=== PATIENT | male | born 1950 | race Caucasian/White ===

== ENCOUNTER 2018-08-20 08:29 | Outpatient (CLI) | payer OTHER, SELFPAY ==
[2018-08-20 09:33] LABS: Abs Immature Grans 0.02 k/cumm (0.0-0.09); Absolute Basophil Count 0.04 k/cumm (0.0-0.2); Absolute Lymphocyte Count 1.36 k/cumm (1.2-3.4); Absolute Monocyte Count 0.66 k/cumm (0.11-0.7); Absolute Neutrophil Count 4.78 k/cumm (1.2-6.7); Basophils % 0.6; Eosinophils % 5.5; HCT 44.9 % (40.0-50.0); HGB 15.3 g/dL (13.5-17.5); Immature Grans % 0.3; Lymphocytes % 18.7; Mean Corp. HGB Concentration 34.1 g/dL (32.0-36.0); Mean Corpuscular Hemoglobin 30.2 pg (27.0-33.0); Mean Corpuscular Volume 88.6 fL (80-95); Mean Platelet Volume 10.5 fL (8.0-11.0); Monocytes % 9.1; Neutrophils % 65.8; Platelet Count 169 x1000/uL (130-400); RBC 5.07 m/cumm (4.50-6.00); White Blood Cell Count 7.26 k/cumm (4.4-10.8)
[2018-08-20 10:42] LABS: ALT 33 U/L (12-78); AST 17 U/L (15-37); Albumin 3.9 g/dL (3.4-5.0); Alkaline Phosphatase 61 U/L (46-116); Anion Gap 7.9 mmol/L (3-11); BUN 20 mg/dL (7-18); Bilirubin, Total 0.6 mg/dL (0.2-1.0); CO2 28.1 mmol/L (21.0-32.0); CREATININE 0.99 mg/dL (0.70-1.30); Chloride 104 mmol/L (98-107); Cholesterol 125 mg/dL (50-200); Glucose 93 mg/dL (70-100); HDL Cholesterol 41 mg/dL (40-60); LDL CHOLESTEROL 71 mg/dL (<100); Potassium 4.3 mmol/L (3.5-5.1); Sodium 140 mmol/L (136-145); Total Protein 6.6 g/dL (6.4-8.2); Triglyceride 59 mg/dL (30-150)
== END 2018-08-20 08:49 ==
PROVIDERS: PCP Nurse Practitioner; Visit Provider Nurse Practitioner
DX: E78.5 Hyperlipidemia, unspecified (principal); R97.20 Elevated prostate specific antigen [PSA]; E66.9 Obesity, unspecified
CPT/HCPCS: 36415; 80053; 80061; 83721; 85025

== ENCOUNTER 2018-12-15 07:00 | Outpatient (CLI) | payer OTHER, SELFPAY ==
[2018-12-15 10:34] LABS: ALT 34 U/L (12-78); AST 18 U/L (15-37); Alkaline Phosphatase 65 U/L (46-116); Anion Gap 6.8 mmol/L (3-11); BUN 22 mg/dL (7-18); Bilirubin, Total 0.6 mg/dL (0.2-1.0); CO2 31.2 mmol/L (21.0-32.0); CREATININE 1.01 mg/dL (0.70-1.30); Calcium 9.2 mg/dL (8.5-10.1); Chloride 103 mmol/L (98-107); Cholesterol 138 mg/dL (50-200); Glucose 101 mg/dL (70-100); HDL Cholesterol 51 mg/dL (40-60); LDL CHOLESTEROL 77 mg/dL (<100); Potassium 4.5 mmol/L (3.5-5.1); Sodium 141 mmol/L (136-145); Total Protein 6.9 g/dL (6.4-8.2); Triglyceride 49 mg/dL (30-150)
[2018-12-16 09:19] LABS: PSA, Screening 9.4 ng/ml (0-4.5)
== END 2018-12-15 07:20 ==
PROVIDERS: PCP Nurse Practitioner; Visit Provider Nurse Practitioner
DX: E78.5 Hyperlipidemia, unspecified (principal); I10 Essential (primary) hypertension; Z12.5 Encounter for screening for malignant neoplasm of prostate; R97.20 Elevated prostate specific antigen [PSA]
CPT/HCPCS: 36415; 80053; 80061; 83721; 84153

== ENCOUNTER 2019-08-24 02:05 | Outpatient (CLI) | payer OTHER, SELFPAY ==
[2019-08-24 09:43] LABS: ALT 33 U/L (16-63); AST 17 U/L (15-37); Albumin 4.1 g/dL (3.4-5.0); Alkaline Phosphatase 57 U/L (46-116); Anion Gap 9.7 mmol/L (3-11); BUN 18 mg/dL (7-18); Bilirubin, Total 0.7 mg/dL (0.2-1.0); CO2 30.3 mmol/L (21.0-32.0); CREATININE 1.04 mg/dL (0.70-1.30); Calculated LDL 80 mg/dL; Chloride 104 mmol/L (98-107); Cholesterol 162 mg/dL (<200); Glucose 104 mg/dL (74-106); HDL Cholesterol 54 mg/dL (40-60); Potassium 4.2 mmol/L (3.5-5.1); Sodium 144 mmol/L (136-145); Total Protein 6.8 g/dL (6.4-8.2); Triglyceride 144 mg/dL (<150)
== END 2019-08-24 02:25 ==
PROVIDERS: PCP Nurse Practitioner; Visit Provider Nurse Practitioner
DX: E78.5 Hyperlipidemia, unspecified (principal); I10 Essential (primary) hypertension
CPT/HCPCS: 36415; 80053; 80061

== ENCOUNTER 2020-01-26 03:17 | Outpatient (CLI) | payer OTHER, SELFPAY ==
[2020-01-27 10:51] LABS: PSA, Screening 10.6 ng/mL (0.0-4.5)
== END 2020-01-26 03:37 ==
PROVIDERS: PCP Nurse Practitioner; Visit Provider Urology
DX: Z12.5 Encounter for screening for malignant neoplasm of prostate (principal)
CPT/HCPCS: 36415; 84153

== ENCOUNTER 2020-08-29 02:25 | Outpatient (CLI) | payer OTHER, SELFPAY ==
[2020-08-29 14:10] LABS: ALT 31 U/L (16-63); AST 18 U/L (15-37); Alkaline Phosphatase 54 U/L (46-116); Anion Gap 5.2 mmol/L (3-11); BUN 20 mg/dL (7-18); Bilirubin, Total 0.6 mg/dL (0.2-1.0); CO2 30.8 mmol/L (21.0-32.0); Calcium 8.6 mg/dL (8.5-10.1); Calculated LDL 83 mg/dL (<100); Chloride 107 mmol/L (98-107); Cholesterol 143 mg/dL (<200); Glucose 101 mg/dL (74-106); HDL Cholesterol 45 mg/dL (40-60); Potassium 4.2 mmol/L (3.5-5.1); Sodium 143 mmol/L (136-145); Total Protein 6.8 g/dL (6.4-8.2); Triglyceride 75 mg/dL (<150)
== END 2020-08-29 02:45 ==
PROVIDERS: PCP Nurse Practitioner; Visit Provider Nurse Practitioner
DX: E78.5 Hyperlipidemia, unspecified (principal); I10 Essential (primary) hypertension
CPT/HCPCS: 36415; 80053; 80061

== ENCOUNTER 2020-12-19 14:19 | Outpatient (CLI) | payer OTHER, SELFPAY ==
[2020-12-20 00:53] LABS: COVID-19 RT-PCR UVMMC Result Negative (Negative)
== END 2020-12-19 14:20 | disposition home or self-care (01) ==
LOC: LBO 14:19
PROVIDERS: PCP Nurse Practitioner; Visit Provider Nurse Practitioner Family
DX: Z20.822 Contact with and (suspected) exposure to COVID-19 (principal)
CPT/HCPCS: U0003

== ENCOUNTER 2021-01-31 03:24 | Outpatient (CLI) | payer OTHER, SELFPAY ==
[2021-01-31 17:21] LABS: PSA, Diagnostic 8.6 ng/mL (0.0-4.5)
== END 2021-01-31 03:25 | disposition home or self-care (01) ==
LOC: LBO 03:24
PROVIDERS: PCP Nurse Practitioner; Visit Provider Urology
DX: R97.20 Elevated prostate specific antigen [PSA] (principal)
CPT/HCPCS: 84153

== ENCOUNTER 2021-09-05 02:54 | Outpatient (CLI) | payer MEDICARE, SELFPAY ==
[2021-09-05 08:04] LABS: Hemoglobin A1C 5.7 % (<5.7)
[2021-09-05 09:23] LABS: ALT 33 U/L (16-63); AST 16 U/L (15-37); Albumin 3.8 g/dL (3.4-5.0); Alkaline Phosphatase 59 U/L (46-116); Anion Gap 7.4 mmol/L (3-11); BUN 18 mg/dL (7-18); Bilirubin, Total 0.5 mg/dL (0.2-1.0); CO2 30.6 mmol/L (21.0-32.0); CREATININE 1.2 mg/dL (0.70-1.30); Calcium 8.7 mg/dL (8.5-10.1); Calculated LDL 80 mg/dL (<100); Chloride 105 mmol/L (98-107); Cholesterol 146 mg/dL (<200); Estimated GFR 59.86 (mL/min/1.73m2); Glucose 102 mg/dL (74-106); HDL Cholesterol 48 mg/dL (40-60); Potassium 4.3 mmol/L (3.5-5.1); Sodium 143 mmol/L (136-145); Total Protein 6.6 g/dL (6.4-8.2); Triglyceride 93 mg/dL (<150)
[2021-09-05 17:39] LABS: PSA, Screening 10.3 ng/mL (0.0-6.5)
== END 2021-09-05 02:55 | disposition home or self-care (01) ==
LOC: LBO 02:54
PROVIDERS: PCP Nurse Practitioner; Visit Provider Nurse Practitioner
DX: E78.5 Hyperlipidemia, unspecified (principal); I10 Essential (primary) hypertension; R73.01 Impaired fasting glucose; R97.20 Elevated prostate specific antigen [PSA]; Z12.5 Encounter for screening for malignant neoplasm of prostate
CPT/HCPCS: 36415; 80053; 80061; 84153; 83036

== ENCOUNTER 2022-01-24 02:33 | Outpatient (CLI) | payer MEDICARE, OTHER, SELFPAY ==
[2022-01-24 18:05] LABS: PSA, Diagnostic 15.7 ng/mL (<=6.5)
== END 2022-01-24 02:34 | disposition home or self-care (01) ==
LOC: LBO 02:35
PROVIDERS: PCP Nurse Practitioner; Visit Provider Nurse Practitioner Gerontology
DX: R97.20 Elevated prostate specific antigen [PSA] (principal)
CPT/HCPCS: 84153

== ENCOUNTER 2022-01-24 03:35 | Emergency (ER) | payer MEDICARE, OTHER, SELFPAY ==
[2022-01-24 03:40] VITALS: BP 160/92; PULSE 90; RESP 16; TEMP 36.3; O2SAT 98
--- NOTE | 2022-01-24 03:50 | ED.GENADUL_ITS ---
Discharge Plan Disposition Patient Disposition: HOME Condition: Good Discharge Details Clinical Impression: Acute urinary retention Primary Care Provider: Beth Morrison ED Provider: Saturnino Brody Home Meds and New Rx's Prescriptions: Continued magnesium 250 mg tablet 500 mg PO DAILY aspirin [Ecotrin Low Strength] 81 MG tablet,delayed release (DR/EC) 81 mg PO DAILY simvastatin 20 mg tablet 20 mg PO DAILY Qty: 90 3RF tamsulosin [Flomax] 0.4 mg capsule 0.4 mg PO DAILY Qty: 90 4RF Discharge Instructions Instructions: Urinary Retention in Men (ED), Parham Catheter Placement and Care (ED) Additional Instructions: Please keep the Parham catheter in until you are able to follow-up promptly with urology. Please empty the leg bag in the manner that was shown to. Please continue to take your Flomax at home. If you notice any worsening of your symptoms, or any new symptoms such as vomiting, diarrhea, fever, chills, shortness of breath, chest pain, numbness, weakness, or fainting , please return immediately to the emergency department for reevaluation. Please follow up with your primary care provider as soon as possible for reassessment and reevaluation. As always, it was a pleasure participating in your medical care today. Referrals: Severiano Sylvester MD [ [facility] STAFF PHYSICIAN] - Beth Morrison NP [Primary Care Provider] - Medical Decision Making This is a pleasant 71-year-old male with a past medical history of benign prostatic hyperplasia, hypertension, high cholesterol, and a previous episode of urinary retention requiring Parham catheter, who presents today for evaluation of urinary retention. Patient states that since 10:30 PM he has not been able to urinate. He denies any fever, chills, hematuria or dysuria. He denies any abdominal pain aside from the feeling of needing to urinate. No other complaints at this time. No other modifying factors. Physical exam demonstrates palpable bladder, no penile or testicular abnormality otherwise. Symptoms appear consistent with BPH causing urinary retention. I did offer a straight cath Parham versus an indwelling Parham, and patient has per her decided on an indwelling Parham. He will follow-up closely with his primary care provider and urology for removal. 4:06 AM Parham catheter was inserted by nursing team. Patient tolerated this well. 900 mL were removed and stopped on its own. Urine was yellow with no cloudiness or blood. Patient feels much better. Patient would like to go home. Patient will be discharged with leg bag and close follow-up with Dr. Sylvester. Discussed red flags which to return. Family was educated on emptying the Parham bag. I have extensively reviewed the treatment plan and discharge instructions with the patient. I have addressed all patient concerns at this time. The patient was made aware of what symptoms to monitor for that would warrant a return to the emergency department. Discussed the plan with the patient, they demonstrate verbal understanding and agreement with our assessment and plan at this time. The documentation in this chart was dictated using [employer] dictation software. Please excuse any dictation errors. HPI General Date/Time Provider Initiated Documentation: 01/24/22 03:38 . HPI Narrative: This is a pleasant 71-year-old male with a past medical history of benign prostatic hyperplasia, hypertension, high cholesterol, and a previous episode of urinary retention requiring Parham catheter, who presents today for evaluation of urinary retention. Patient states that since 10:30 PM he has not been able to urinate. He denies any fever, chills, hematuria or dysuria. He denies any abdominal pain aside from the feeling of needing to urinate. No other complaints at this time. No other modifying factors. Related Data Home Medications Medication Instructions Recorded Confirmed aspirin 81 mg tablet,delayed 81 mg PO DAILY 01/08/13 09/12/21 release (Ecotrin Low Strength) magnesium 250 mg tablet 500 mg PO DAILY 09/12/21 01/24/22 simvastatin 20 mg tablet 20 mg PO DAILY #90 tab-caps 11/20/21 01/24/22 tamsulosin 0.4 mg capsule (Flomax) 0.4 mg PO DAILY #90 tab-caps 11/20/21 01/24/22 Previous Rx's Medication Instructions Recorded simvastatin 20 mg tablet 20 mg PO DAILY #90 tab-caps 11/20/21 tamsulosin 0.4 mg capsule (Flomax) 0.4 mg PO DAILY #90 tab-caps 11/20/21 Allergies Allergy/AdvReac Type Severity Reaction Status Date / Time latex Allergy Unknown Skin Rash Verified 01/24/22 03:42 Penicillins Allergy Unknown THROAT Verified 01/24/22 03:42 SWELLING finasteride Allergy rash/itchin Verified 01/24/22 03:42 g ibuprofen Allergy Verified 01/24/22 03:42 General Stated Complaint: Urinary PREETI: 3 Review of Systems All systems reviewed & are unremarkable except as noted in HPI and below PFSH All Active Problems (Updated 01/24/22 @ 03:54 by Saturnino Brody DO) Acute urinary retention (Acute) Seborrheic keratoses (Acute) Skin tag (Acute) Encounter for routine history and physical examination (Acute) Elevated prostate specific antigen [PSA] (Acute 11/28/11) doubled 04-17, negative bx 2008 Elevated fasting blood sugar (Acute 08/17/15) Essential hypertension (Acute 04/27/13) Hyperlipidemia (Acute 11/28/11) PCEq 12%; LDL baseline 153 Incomplete bladder emptying (Acute 11/22/15) Obesity (Acute 05/07/13) Laceration of hand (Acute) Family History Father Cancer intestinal per pt Hypertension Mother , MVA No problems noted. Sister Cancer Social History Smoking/Tobacco Use Status: Never Smoking risk assessment performed?: Yes Alcohol Intake: current Alcohol Intake frequency: a few times a month Drug use: Never Substance use type: does not use Adopted: No Household members: significant other Housing: house Number of Children: 3 number of grandchildren: 3 Communication Needs: Corrective Lenses Do you need help understanding health information?: Never current occupation: retired Pets and animals: Yes Sexually active: Yes Do you think of yourself as: straight/heterosexual Current gender identity: male What is your relationship status?: How often do you talk on the phone with friends or family?: once per week Do you belong to any clubs or organized social groups?: no Panel score (0-1 are the most socially isolated patients): 1 What type of physical activity do you participate in: walking Duration: 30-45 minutes/day Frequency: 1-2 times per week Special ghazal needs: No Seatbelt use: sometimes Helmet use: No Drive intox or ride w/intox catering driver: No Working smoke detector in home: Yes Fire extinguisher in home: Yes Carbon monox detector in home: Yes Do you feel safe at home: Yes Exam Narrative Exam Narrative: 1.Const: Well-nourished, Well-developed, appearing stated age 2.Eyes: PERRL, no conjunctival injection, and symmetrical lids. 3.ENT: Atraumatic external nose and ears. Moist MM. Neck: Symmetric, trachea midline, No thyromegaly. 4.CVS: +S1/S2, No murmurs or gallops. Peripheral pulses 2+ and equal in all extremities. Brisk capillary refill in all extremities. 5.RESP: Unlabored respiratory effort. Clear to auscultation bilaterally. No wheezes rales or rhonchi 6.GI: Soft, Nontender/Nondistended, No hepatosplenomegaly. No guarding or rebound. Enlarged bladder palpable. Genital exam demonstrate no penile tenderness, swelling, erythema, or pain. No testicular mass or abnormality. 7.MSK: Normocephalic/Atraumatic, Extremities w/o deformity or ttp No cyanosis or clubbing, Normal movement of all extremities 8.Skin: Warm, Dry. No rashes or lesions. 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 Sensation grossly intact, no focal neurologic deficits. 10.Psych: (AAO) x3. Appropriate mood and affect Course Vital Signs Vital signs: Vital Signs Temperature 36.3 C L 01/24/22 03:40 Pulse 90 01/24/22 03:40 Respiratory Rate 16 01/24/22 03:40 Blood Pressure 160/92 H 01/24/22 03:40 Pulse Oximetry 98 01/24/22 03:40 Temperature 36.3 C L 01/24/22 03:40 Pulse 90 01/24/22 03:40 Respiratory Rate 16 01/24/22 03:40 Respiratory Effort Non-Labored 01/24/22 03:43 Blood Pressure 160/92 H 01/24/22 03:40 Pulse Oximetry 98 01/24/22 03:40 Pain Level 5 01/24/22 03:40
--- NOTE | 2022-01-24 04:07 | NUR.NOTE ---
Referral faxed to [facility] Urology for urinary retention. Patient sent home with indwelling catheter in place.Nursing Note:
== END 2022-01-24 04:23 | disposition home or self-care (01) ==
LOC: ER 04:19
PROVIDERS: Emergency Provider Student in an Organized Health Care Education/Training Program; PCP Nurse Practitioner
DX: R33.8 Other retention of urine (principal); R97.20 Elevated prostate specific antigen [PSA]
CPT/HCPCS: 51702; 99283; 84153

== ENCOUNTER → 2022-01-26 09:16 | Outpatient (BNVA) | payer MEDICARE, OTHER, SELFPAY | PROVIDERS: PCP Nurse Practitioner; Referring Provider Nurse Practitioner; Visit Provider Urology | DX: Z46.6 Encounter for fitting and adjustment of urinary device (principal); R33.8 Other retention of urine | CPT/HCPCS: 51702 ==

== ENCOUNTER 2022-01-29 16:08 | Outpatient (REF) | payer MEDICARE, OTHER, SELFPAY | END 2022-01-29 16:09 | disposition home or self-care (01) | LOC: LBN 16:08 | PROVIDERS: PCP Nurse Practitioner; Visit Provider Nurse Practitioner Gerontology | DX: R33.8 Other retention of urine (principal); R39.89 Other symptoms and signs involving the genitourinary system | CPT/HCPCS: 87077; 87086; 87186 ==

== ENCOUNTER 2022-01-29 18:35 | Emergency (ER) | payer MEDICARE, OTHER, SELFPAY ==
[2022-01-29 18:44] VITALS: BP 164/82; PULSE 73; RESP 16; TEMP 36.1; O2SAT 95
--- NOTE | 2022-01-29 18:58 | ED.GENADUL_ITS ---
Discharge Plan Disposition Patient Disposition: HOME Condition: Improving Discharge Details Clinical Impression: Acute on chronic urinary retention Primary Care Provider: Beth Morrison ED Provider: Cami Walker Home Meds and New Rx's Prescriptions: Continued tamsulosin [Flomax] 0.4 mg capsule 0.8 mg PO DAILY Qty: 90 4RF magnesium 250 mg tablet 500 mg PO DAILY aspirin [Ecotrin Low Strength] 81 MG tablet,delayed release (DR/EC) 81 mg PO DAILY simvastatin 20 mg tablet 4,020 mg PO DAILY tamsulosin 0.4 mg capsule 0.8 mg PO DAILY Label Comments: TAKE 1 CAPSULE BY MOUTH DAILY Discharge Instructions Instructions: Urinary Retention in Men (ED), Parham Catheter Placement and Care (ED) Additional Instructions: Call urology office tomorrow as discussed. Please return to the ER for any worsening abdominal pain, if the Parham stops draining or any concerns. Follow up with primary care provider in 3-5 days. Return to ED sooner if any worsening or concerns. Increase oral fluids. Referrals: May Blake DNP [NURSE PRACTITIONER] - 1 day Beth Morrison, PROPOSAL CONSULTANT [Primary Care Provider] - Discharge Data Discharge Date/Time-TO BE ENTERED AT DEPARTURE: 01/29/22 19:54 Medical Decision Making <Cami Walker - Last Filed: 01/29/22 22:10> 71-year-old female presents to the ER with a chief complaint of inability to urinate. Patient was seen here approximately 5 days ago for urinary retention had a Parham catheter placed at that time with a leg bag. He was seen by urology this morning had Parham removed around 8 AM. He reports that he was initially able to urinate however became more difficult around 4 PM this afternoon. He did have a bladder scan which showed approximately 200 cc postvoid residual after the Parham was removed. He reports he is able to urinate with just a little tiny bit at a time. He is complaining of abdominal fullness. He has a past medical history of hypertension, hyperlipidemia elevated PSA. Bladder scan performed by staff therapist which showed approximately 500 cc of urine. Parham inserted by staff therapist, at this time 800cc output. 1939: Patient reevaluation, he appears much more comfortable. He will call urology office tomorrow to discuss the reinsertion of the Parham catheter. Patient be discharged home. This text was generated using [employer] dictation system, please disregard any oddities of phrase or misspellings. <Itz Blue MD - Last Filed: 02/02/22 06:50> Date: 01/29/22 Time: 18:04 Note: Patient seen, examined, and discussed with ANA Walker. I agree with treatment plan as discussed/documented. HPI <Cami Walker - Last Filed: 01/29/22 22:10> General Mode of arrival: ambulatory . Date/Time Provider Initiated Documentation: 01/29/22 18:36 . Limitations to Documentation: no limitations . Information obtained by: patient, family (), RN notes reviewed and old records reviewed . HPI Narrative: 71-year-old female presents to the ER with a chief complaint of inability to urinate. Patient was seen here approximately 5 days ago for urinary retention had a Parham catheter placed at that time with a leg bag. He was seen by urology this morning had Parham removed around 8 AM. He reports that he was initially able to urinate however became more difficult around 4 PM this afternoon. He did have a bladder scan which showed approximately 200 cc postvoid residual after the Parham was removed. He reports he is able to urinate with just a little tiny bit at a time. He is complaining of abdominal fullness. He has a past medical history of hypertension, hyperlipidemia elevated PSA. Related Data Home Medications Medication Instructions Recorded Confirmed aspirin 81 mg tablet,delayed 81 mg PO DAILY 01/08/13 01/29/22 release (Ecotrin Low Strength) magnesium 250 mg tablet 500 mg PO DAILY 09/12/21 01/29/22 tamsulosin 0.4 mg capsule (Flomax) 0.8 mg PO DAILY #90 tab-caps 01/26/22 01/29/22 simvastatin 20 mg tablet 4,020 mg PO DAILY 01/29/22 01/29/22 tamsulosin 0.4 mg capsule 0.8 mg PO DAILY 01/29/22 01/29/22 Previous Rx's Medication Instructions Recorded tamsulosin 0.4 mg capsule (Flomax) 0.8 mg PO DAILY #90 tab-caps 01/26/22 Allergies Allergy/AdvReac Type Severity Reaction Status Date / Time latex Allergy Unknown Skin Rash Verified 01/29/22 18:49 Penicillins Allergy Unknown THROAT Verified 01/29/22 18:49 SWELLING finasteride Allergy rash/itchin Verified 01/29/22 18:49 g ibuprofen Allergy Verified 01/29/22 18:49 General Stated Complaint: Urinary PREETI: 3 Review of Systems <Cami Walker - Last Filed: 01/29/22 22:10> All systems reviewed & are unremarkable except as noted in HPI and below Genitourinary Genitourinary: Reports as per HPI, Reports oliguria and Reports difficulty urinating PFSH <Cami Walker - Last Filed: 01/29/22 22:10> All Active Problems (Updated 01/29/22 @ 19:42 by Cami Walker) Acute on chronic urinary retention (Acute) Acute urinary retention (Acute) Seborrheic keratoses (Acute) Skin tag (Acute) Encounter for routine history and physical examination (Acute) Elevated prostate specific antigen [PSA] (Acute 11/28/11) doubled -, negative bx 2008 Elevated fasting blood sugar (Acute 08/17/15) Essential hypertension (Acute 04/27/13) Hyperlipidemia (Acute 11/28/11) PCEq 12%; LDL baseline 153 Incomplete bladder emptying (Acute 11/22/15) Obesity (Acute 05/07/13) Laceration of hand (Acute) Family History Father Cancer intestinal per pt Hypertension Mother , MVA No problems noted. Sister Cancer Social History Smoking/Tobacco Use Status: Never Smoking risk assessment performed?: Yes Alcohol Intake: current Alcohol Intake frequency: a few times a month Drug use: Never Substance use type: does not use Adopted: No Household members: significant other Housing: house Number of Children: 3 number of grandchildren: 3 Communication Needs: Corrective Lenses Do you need help understanding health information?: Never current occupation: retired Pets and animals: Yes Sexually active: Yes Do you think of yourself as: straight/heterosexual Current gender identity: male What is your relationship status?: How often do you talk on the phone with friends or family?: once per week Do you belong to any clubs or organized social groups?: no Panel score (0-1 are the most socially isolated patients): 1 What type of physical activity do you participate in: walking Duration: 30-45 minutes/day Frequency: 1-2 times per week Special ghazal needs: No Seatbelt use: sometimes Helmet use: No Drive intox or ride w/intox tank driver: No Working smoke detector in home: Yes Fire extinguisher in home: Yes Carbon monox detector in home: Yes Do you feel safe at home: Yes Exam <Cami Walker [facility] Filed: 01/29/22 22:10> Narrative Exam Narrative: Constitutional: Alert and oriented x3. Appears stated age. Normal body habitus. Head: Normocephalic, no trauma. Chest: RRR, Normal S1, S2, distal pulses intact. Resp: Lungs clear to auscultation bilaterally, no wheezes, rales, or rhonchi. Abdomen: Suprapubic tenderness with palpation and fullness. Musculoskeletal: Normal gait, 5/5 strength to all four extremities. Skin: No suspicious rashes or lesions. Capillary refill less than 2 sec. Course <Cami Walker [facility] Filed: 01/29/22 22:10> Vital Signs Vital signs: Vital Signs Temperature 36.1 C L 01/29/22 18:44 Pulse 73 01/29/22 18:44 Respiratory Rate 16 01/29/22 18:44 Blood Pressure 164/82 H 01/29/22 18:44 Pulse Oximetry 95 01/29/22 18:44 Temperature 36.1 C L 01/29/22 18:44 Temperature Source Temporal Artery Scan 01/29/22 18:44 Pulse 73 01/29/22 18:44 Respiratory Rate 16 01/29/22 18:44 Respiratory Effort 01/29/22 18:44 Blood Pressure 164/82 H 01/29/22 18:44 Blood Pressure Position Sitting 01/29/22 18:44 Pulse Oximetry 95 01/29/22 18:44 Pain Level 10 01/29/22 18:44
[2022-01-29] MEDS: Lidocaine 2% Jelly 11 ML SYR UR (19:54)
== END 2022-01-29 19:54 | disposition home or self-care (01) ==
PROVIDERS: Emergency Provider Registered Nurse Emergency; PCP Nurse Practitioner
DX: R33.9 Retention of urine, unspecified (principal)
CPT/HCPCS: 99283; 51702; 51798; 81003; 99214

== ENCOUNTER → 2022-02-07 14:18 | Outpatient (BNVA) | payer MEDICARE, OTHER, SELFPAY | PROVIDERS: PCP Nurse Practitioner; Referring Provider Nurse Practitioner; Visit Provider Nurse Practitioner Gerontology | DX: R33.8 Other retention of urine (principal); R97.20 Elevated prostate specific antigen [PSA] | CPT/HCPCS: 99214 ==

== ENCOUNTER → 2022-02-27 00:15 | Outpatient (CLI) | payer MEDICARE, OTHER, SELFPAY ==
--- NOTE | 2022-02-27 07:15 | DI.US_ITS ---
Exam(s) US PROSTATE BIOPSY EXAM: US PROSTATE BIOPSY CLINICAL HISTORY: elevated psa, ACUTE ON CHRONIC URINARY RETENTION, R97.20, R33.9 TECHNIQUE: Transrectal ultrasound. COMPARISON: No exams were available for comparison FINDINGS: Ultrasound was provided for Dr. Sylvester during prostate biopsy. Prostate volume 123 cc. Please see pr ocedure note for details. DATA REPOSITORY:
--- NOTE | 2022-02-27 10:00 | PROST_PTH ---
PATIENT: Naren Lechuga LOC: [facility] U#:[id number] AGE/SX: 75/M ROOM: RE02/27/[address]: May Blake DNP : 1950 BED: DIS: SPEC #: [id number] RECD: 02/27/22 12:47 STATUS: REBECCA LANDON #: [id number] ADI: 02/27/22 10:[address]: May Blake DEPT: Surgical Specimen RECD BY: Angeles Conde ENTERED: 02/27/22 12:50 SP TYPE: PROST OTHR DR: Beth Morrison APRN Tissues: 1 - PROSTATE NEEDLE BIOPSY 2 - PROSTATE NEEDLE BIOPSY 3 - PROSTATE NEEDLE BIOPSY 4 - PROSTATE NEEDLE BIOPSY 5 - PROSTATE NEEDLE BIOPSY 6 - PROSTATE NEEDLE BIOPSY 7 - PROSTATE NEEDLE BIOPSY 8 - PROSTATE NEEDLE BIOPSY 9 - PROSTATE NEEDLE BIOPSY 10 - PROSTATE NEEDLE BIOPSY 11 - PROSTATE NEEDLE BIOPSY 12 - PROSTATE NEEDLE BIOPSY Procedures: GROSS AND MICRO LEVEL 4 IMMUNOPEROXIDASE STAIN Comments: [id number]
--- NOTE | 2022-02-27 11:32 | ROE_ITS ---
Date of service: 02/27/22 Time of Service: 09:00 Operative Note Operative Note PRE-OP DIAGNOSIS: Elevated PSA POST-OP DIAGNOSIS: same PROCEDURE: Transrectal ultrasound guided biopsy of prostate SURGEON: Severiano Sylvester ANESTHESIA TYPE: Local By Surgeon Refer to Anesthesia Record ESTIMATED BLOOD LOSS: 20 PATHOLOGY: other (Laterally directed prostate biopsies) COMPLICATIONS: None Patient was transported to: no change Patient's condition: stable Implants: none Indications: This is a 71-year-old gentleman who has a past history of an elevated PSA. He has had a prostate biopsy in the past that showed no prostate malignancy. He currently has urinary retention and an elevated PSA of 15.7 ng/mL. He presents for repeat prostate biopsy Findings: Prostate volume 123 cc Procedure Description: The patient is given a mechanical and antibiotic bowel prep. He was brought to the radiology suite on 02/27/2022. He was placed in the left lateral position. Transrectal imaging of the prostate was then performed using a variable m egahertz transducer. The prostate was imaged in transverse and longitudinal planes. Prostate was markedly enlarged with a volume of 123 cc. The transition zone was enlarged and a bit asymmetric with the left side being larger than the right. The peripheral zone was compressed by the enlarged transition zone. No specific hypoechoic areas were identified. A periprostatic nerve block was then performed with 1% lidocaine without epinephrine. A total of 12 laterally directed biopsies were then taken. Each biopsy was labeled separately and sent to the lab for permanent section. The patient tolerated this procedure well with no complications.
== END ==
PROVIDERS: PCP Nurse Practitioner; Visit Provider Nurse Practitioner Gerontology
DX: R33.9 Retention of urine, unspecified (principal); R97.20 Elevated prostate specific antigen [PSA]; N42.89 Other specified disorders of prostate
CPT/HCPCS: 55700; 76942; 88305; 99212; 88361

== ENCOUNTER → 2022-03-13 10:50 | Outpatient (BNVA) | payer MEDICARE, OTHER, SELFPAY | PROVIDERS: PCP Nurse Practitioner; Referring Provider Nurse Practitioner; Visit Provider Urology | DX: R33.8 Other retention of urine (principal); R97.20 Elevated prostate specific antigen [PSA] | CPT/HCPCS: 99215 ==

== ENCOUNTER 2022-03-16 15:37 | Outpatient (REF) | payer MEDICARE, OTHER, SELFPAY ==
[2022-03-16 14:16] LABS: Source Nasal/Nares
[2022-03-16 17:17] LABS: COVID-19 PCR Negative (Negative)
== END 2022-03-16 15:38 | disposition home or self-care (01) ==
LOC: LBN 15:37
PROVIDERS: PCP Nurse Practitioner; Visit Provider Urology
DX: Z20.822 Contact with and (suspected) exposure to COVID-19 (principal); Z01.818 Encounter for other preprocedural examination
CPT/HCPCS: 87635

== ENCOUNTER 2022-03-19 07:24 | Inpatient (IN) | payer MEDICARE, OTHER, SELFPAY ==
[2022-03-19] VITALS (13 sets, daily range): BP systolic 106–138; BP diastolic 57–82; PULSE 60–76; RESP 12–27; TEMP 35.5–37.5; O2SAT 90–97; BMI 32.1
[2022-03-19] MEDS: Lactated Ringers 1,000 ML 80 ML IV ×3 (08:23→23:09)
--- NOTE | 2022-03-19 09:22 | W.PM.HP.N ---
Date of service: 03/19/22 Time of Service: : Assessment and Plan Assessment and plan (1) Urinary retention: Status: Acute Assessment and plan: Given the size of the prostate, we will move forward with an open simple retropubic prostatectomy History of Present Illness History of Present Illness Chief Complaint: Urinary retention Narrative: This is a 72 year old man who has a history of an elevated PSA. He has had two negative prostate biopsies (most recently @ 1 month ago). At the time of the prostate biopsy, his prostate volume was measured @ 125 cc by ultrasound. He developed urinary retention requiring a catheter. He has failed alpha lee therapy. He is unable to tolerate 5 alpha reductase inhibitors. After discussing multiple surgical approaches, he presents for an open simple prostatectomy. Review of Systems Constitutional Comments: No fevers or chills Decreased vision - due for cataract surgery. No dysphasia No diabetes or thyroid dysfunction No shortness of breath, cough or hemoptysis No chest pain or palpitations No nausea, vomiting, hepatitis, ulcers, jaundice No seizures, strokes or peripheral neuropathy No bleeding disorders or anemia No gout PFSH All Active Problems (Updated 03/19/22 @ 09:36 by Severiano Sylvester MD) Urinary retention (Acute) Seborrheic keratoses (Acute) Skin tag (Acute) Encounter for routine history and physical examination (Acute) Elevated prostate specific antigen [PSA] (Acute 11/28/11) doubled -, negative bx 2008 Elevated fasting blood sugar (Acute 08/17/15) Essential hypertension (Acute 04/27/13) Hyperlipidemia (Acute 11/28/11) PCEq 12%; LDL baseline 153 Incomplete bladder emptying (Acute 11/22/15) Obesity (Acute 05/07/13) Laceration of hand (Acute) Family History Father Cancer intestinal per pt Hypertension Mother , MVA No problems noted. Sister Cancer Social History Smoking/Tobacco Use Status: Never Smoking risk assessment performed?: Yes Alcohol Intake: former Drug use: Never Substance use type: does not use Adopted: No Household members: significant other Housing: house Number of Children: 3 number of grandchildren: 3 Communication Needs: Corrective Lenses Do you need help understanding health information?: Never current occupation: retired Pets and animals: Yes Sexually active: Yes Do you think of yourself as: straight/heterosexual Current gender identity: male What is your relationship status?: How often do you talk on the phone with friends or family?: once per week Do you belong to any clubs or organized social groups?: no Panel score (0-1 are the most socially isolated patients): 1 What type of physical activity do you participate in: walking Duration: 30-45 minutes/day Frequency: 1-2 times per week Special ghazal needs: No Seatbelt use: sometimes Helmet use: No Drive intox or ride w/intox yard truck driver: No Working smoke detector in home: Yes Fire extinguisher in home: Yes Carbon monox detector in home: Yes Do you feel safe at home: Yes Do you feel safe in your relationship?: Yes Meds Allergies and Home Medications Allergies Allergy/AdvReac Type Severity Reaction Status Date / Time latex Allergy Unknown eyes run Verified 03/19/22 07:33 Penicillins Allergy Unknown THROAT Verified 03/19/22 07:33 SWELLING finasteride Allergy rash/itchin Verified 03/19/22 07:33 g ibuprofen Allergy Verified 03/19/22 07:33 Home Medications Medication Instructions Recorded Confirmed Type magnesium 250 mg tablet 500 mg PO DAILY 09/12/21 03/19/22 History simvastatin 20 mg tablet 20 mg PO DAILY 02/07/22 03/19/22 History tamsulosin 0.4 mg capsule (Flomax) 0.8 mg PO DAILY #90 tab-caps 02/07/22 03/19/22 Rx Exam Const General: cooperative Nutritional Appearance: overweight Neck Neck: supple Resp Effort & Inspection: normal respiratory effort Auscultation: clear to auscultation bilaterally Cardio Rate: regular rate Rhythm: regular rhythm GI Palpation: soft and no masses Penis: other (caro in place) Neuro General: patient alert, patient awake and patient oriented x3 Results Labs Labs: Laboratory Results - last 24 hr 03/19/22 07:50 Patient ABO/Rh A Positive Antibody Screen NEGATIVE Last Vital Signs Temp 36.5 C 03/19/22 07:50 Pulse 65 03/19/22 07:50 Resp 16 03/19/22 07:50 BP 138/78 03/19/22 07:50 Pulse Ox 97 03/19/22 07:50
--- NOTE | 2022-03-19 09:24 | W.ANESPRE ---
General Info Date of Service Date Performed: 03/19/22 Height: 5 ft 10 in Weight: 101.5 kg Body Mass Index (BMI): 32.1 Surgical Procedure: Operation Date: 03/19/22 09:55 Proposed Procedure Side Surgeon p Simple Retropubic Prostatectomy Severiano Sylvester MD Meds Allergies and Home Medications Allergies Allergy/AdvReac Type Severity Reaction Status Date / Time latex Allergy Unknown eyes run Verified 03/19/22 07:33 Penicillins Allergy Unknown THROAT Verified 03/19/22 07:33 SWELLING finasteride Allergy rash/itchin Verified 03/19/22 07:33 g ibuprofen Allergy Verified 03/19/22 07:33 Home Medication Medication Instructions Recorded magnesium 250 mg tablet 500 mg PO DAILY 09/12/21 simvastatin 20 mg tablet 20 mg PO DAILY 02/07/22 tamsulosin 0.4 mg capsule (Flomax) 0.8 mg PO DAILY #90 tab-caps 02/07/22 Current Visit Medications: Current Medications Generic Name Dose Route Start Last Admin Trade Name Freq PRN Reason Stop Dose Admin Ringer's Solution 1,000 mls @ 80 mls/hr 03/19/22 06:00 03/19/22 08:23 IV 04/15/22 23:59 80 mls/hr INFUSION AMAURY Administration Gentamicin Sulfate 160 mg/ 104 mls @ 208 mls/hr 03/19/22 06:00 Sodium Chloride IVPB 03/19/22 18:00 PREOP AMAURY IV Miscellaneous Supplies 1 each 03/19/22 06:00 Iv Access IV 04/15/22 23:59 DIRECTED AMAURY Sodium Chloride 0 ml 03/19/22 06:00 Normal Saline Flush 10 Ml Syr IV 04/15/22 23:59 PRN PRN Sodium Chloride 0 ml 03/19/22 06:00 Normal Saline 10 Ml Vial IJ 04/15/22 23:59 DIRECTED PRN Sterile Water 0 ml 03/19/22 06:00 Water,Injection,Sterile 10 Ml Vial IJ 04/15/22 23:59 DIRECTED PRN PFSH Active Problems Active Problems: Problem Status Onset Code Seborrheic keratoses L82.1 Skin tag L91.8 Encounter for routine history and physical examination Z00.00 Elevated prostate specific antigen [PSA] 11/28/11 R97.20 Elevated fasting blood sugar 08/17/15 R73.01 Essential hypertension 04/27/13 I10 Hyperlipidemia 11/28/11 E78.5 Incomplete bladder emptying 11/22/15 R33.9 Obesity 05/07/13 E66.9 Laceration of hand S61.419A Tobacco Smoking/Tobacco Use Status: Never Passive smoking exposure: No Alcohol Alcohol Intake: former Substance Use Substance use: Never Substance use type: does not use Vital Signs and Lab Results Vital Signs Most Recent Vital Signs in EMR: Most Recent Vital Signs Temp Pulse Resp BP Pulse Ox 36.5 C 65 16 138/78 97 03/19/22 07:50 03/19/22 07:50 03/19/22 07:50 03/19/22 07:50 03/19/22 07:50 Lab Results Blood Type / Crossmatch: Patient ABO/Rh A Positive 03/19/22 Antibody Screen NEGATIVE 03/19/22 Complete Blood Count: No Data to Display Complete Metabolic Panel: No Data to Display Liver Function Panel: No Data to Display Coagulation Panel: No Data to Display Cardiac Panel: No Data to Display Arterial Blood Gas: No Data to Display Venous Blood Gas: No Data to Display Pancreas Panel: No Data to Display Thyroid Panel: No Data to Display Infectious Disease: Coronavirus (COVID-19)(PCR) Negative (Negative) 03/16/22 08:25 Coronavirus 2019 Source Nasal/Nares 03/16/22 08:25 Blood Cultures: No Data to Display Toxicology Panel: No Data to Display Anesthesia Assessment and Plan Anesthesia History Personal History: No History of Anesthesia Complications Family History: No Family History of Anesthesia Complications Exercise Tolerance Exercise Tolerance: Metabolic Equivalents>4 Pertinent Negatives Pertinent Negatives: No Symptoms of GERD, No Major Cardiovascular Symptoms or Complaints, No Major Pulmonary Symptoms or Complaints and No History of CVA/TIA Cardiac & Pulmonary Exam Cardiac Exam: Normal S1/S2 Heart Sounds Pulmonary Exam: Clear Bilateral Breath Sounds Implantable Cardiac Device Does patient have a Pacemaker or an ICD?: No Airway Exam Known Difficult Airway: No Mallampati Class: 2 Mouth Opening: Normal (> 3cm) Thyromental Distance: Greater than 3 cm Neck Range of Motion: Full ROM Neck Circumference: Normal Teeth Condition: Normal Dentition ASA Classification ASA Score: ASA 2 Emergency Case?: No NPO Status NPO Status: NPO Clears >2 hours, Solids >8 hours Anesthesia Plan Resuscitation Status: Full Code Anesthesia Technique: General Anesthesia Airway Planned: Endotracheal Tube Pain Management: Surgeon and patient request nerve block (Bilateral rescue TAPs if requested. ) Monitors Used: Standard Monitors
[2022-03-19] MEDS: GENTAMICIN 160 MG in Normal Saline 100 ML 208 MG IVPB (09:45)
--- NOTE | 2022-03-19 11:35 | PROST_PTH ---
PATIENT: Naren Lechuga LOC: U#:[id number] AGE/SX: 72/M ROOM: RE03/19/[address]: Severiano Sylvester MD : 1950 BED: A DIS: 03/20/2022 SPEC #: [id number] RECD: 03/19/22 13:12 STATUS: REBECCA REQ #: [id number] ADI: 03/19/22 11:[address]: Severiano Sylvester DEPT: Surgical Specimen RECD BY: Connie Coburn ENTERED: 03/19/22 13:14 SP TYPE: PROST OTHR DR: Beth Morrison APRN Tissues: 1 - PROSTATE RESECTION Procedures: IMMUNOPEROXIDASE STAIN GROSS AND MICRO LEVEL 5 Comments: [id number]
[2022-03-19] MEDS: Bupivacaine 0.5% Pres-Free W/EPI 10 ML VIAL (11:40)
--- NOTE | 2022-03-19 11:57 | ROE_ITS ---
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 He developed urinary retention requiring a Parham catheter. He is unable to tolerate 5 alpha reductase inhibitors. He failed medical management with alpha blockers. His most recent transrectal ultrasound indicates that the prostate is over 100 g in size. Because of the size of the prostate, he is more interested in a simple open prostatectomy. Findings: Diffusely enlarged prostate Procedure Description: The patient was brought to the operating room on 03/19/2022. He was given preoperative IV antibiotics. After successful induction of general anesthesia, he was placed in the supine position. His indwelling catheter was removed. His genitalia and lower abdomen were prepped and draped sterilely. A 16 [place] catheter was passed through the urethra into the bladder. The catheter balloon was inflated with 10 cc of sterile water. The catheter was hooked to gravity drainage. A Pfannenstiel incision was made and extended down through the subcutaneous fat until the rectus fascia was identified. The fascia was opened along the direction of the incision. The fascia was then freed from the underlying rectus muscle using sharp and blunt dissection. The bellies of the rectus muscle were retracted laterally and this allowed us to come down upon the bladder and prostate in the retroperitoneum. The periprosthetic fat on the anterior aspect of the prostate was dissected free using sharp and blunt dissection. We were then able to visualize the exterior surface of the prostatic capsule. Stay sutures of 3-0 Vicryl were placed through the prostatic capsule. The capsule was opened longitudinally between the stay sutures. The capsule was opened using the Bovie. A plane was then developed between the prostatic capsule and the actual adenoma. We used blunt dissection to dissect and shell out the adenoma. We finger fractured the urethra out toward the apex of the gland. The Parham catheter balloon was deflated and the catheter was removed. This allowed us to dissect the prostate off of the bladder neck. The entire prostate adenoma was then removed and sent to pathology for permanent section. A lap pad was placed within the prostatic fossa to help with hemostasis. A 24 [place] hematuria catheter was passed through the urethra and positioned with the tip in the bladder. The catheter balloon was inflated with 50 cc of sterile water. The prostatic capsule was then reapproximated using [id number] 0 Vicryl sutures. The Parham catheter was hand irrigated until all clots were removed. Continuous bladder irrigation with saline was then begun and the catheter was hooked to gravity drainage. The rectus fascia was then closed using a running #1 PDS looped suture. The skin was closed with a 4-0 Vicryl subcuticular suture. Quarter percent Marcaine with epinephrine was injected at the incision site. The patient tolerated this procedure well with no complications.
--- NOTE | 2022-03-19 13:17 | W.ANESPOSTOP ---
Postoperative Evaluation Date, Time and Location Date Performed: 03/19/22 Time Performed: 13:17 Patient Location: PACU Vital Signs Most Recent Imported Vital Signs: Most Recent Vital Signs Temp Pulse Resp BP Pulse Ox 36.7 C 69 12 121/62 93 03/19/22 12:40 03/19/22 12:50 03/19/22 12:50 03/19/22 12:50 03/19/22 12:50 Pain Score Most Recent Pain Score: Most Recent Pain Score Pain Level 0 03/19/22 12:50 Assessment Mental Status: Awake (Alert & Oriented to Patient Baseline) Airway and Respiratory Function: Patent airway with normal (patient baseline) respiratory exam Cardiovascular Function: Hemodynamically Stable Hydration Status: Adequately Hydrated Nausea & Vomiting: No Nausea or Vomiting Pain: Pain is tolerable per patient Peripheral Nerve Block: Patient did not receive a nerve block
[2022-03-19] MEDS: Docusate Sodium 100 MG CAP PO (19:55)
[2022-03-20 06:27] LABS: HCT 33.4 % (40.0-50.0); HGB 11.2 g/dL (13.5-17.5); MCH 29.5 pg (27.0-33.0); MCHC 33.5 % (32.0-36.0); MCV 88 fL (80-95); MPV 9.3 fL (8.0-11.0); Platelet Count 196 10^3/uL (130-400); RDW 13.3 % (11.8-14.1); RDW-SD 42.6 fL
[2022-03-20 06:38] LABS: Anion Gap 10.5 mmol/L (3-11); BUN 20 mg/dL (7-18); CO2 27.5 mmol/L (21.0-32.0); CREATININE 0.9 mg/dL (0.70-1.30); Calcium 8.2 mg/dL (8.5-10.1); Chloride 104 mmol/L (98-107); Glucose 120 mg/dL (74-106); Sodium 142 mmol/L (136-145)
[2022-03-20 07:21] VITALS: BP 117/70; PULSE 73; RESP 18; TEMP 37.6; O2SAT 92
--- NOTE | 2022-03-20 07:52 | PGE_ITS ---
Date of Service Date of service: 03/20/22 Time of Service: 07:52 Assessment and Plan Assessment and plan (1) Urinary retention: Status: Acute Assessment and plan: He is progressing as we would expect after his simple retropubic prostatectomy. Discontinue his IV fluids, but continue with continuous bladder irrigation today. Once the CBI can be discontinued, we can then consider discharging to home with his catheter in place. (2) Elevated prostate specific antigen [PSA]: Status: Acute Subjective Subjective Interval history since last seen: He has a few bladder spasms overnight, but did not go into clot retention. He has been able to tolerate p.o. nutrition with no nausea or vomiting. He does have some incisional discomfort. Exam Narrative Exam Narrative: He does not appear septic or toxic His vital signs are documented elsewhere His surgical incision is clean with some surrounding ecchymosis but no erythema. His abdomen is soft and not tympanitic. There is no peritoneal signs His bladder irrigation is light pink He is awake and alert His renal function and hemoglobin are both stable and appropriate post operatively. Objective Last Vital Signs Temp 37.6 C H 03/20/22 07:21 Pulse 73 03/20/22 07:21 Resp 18 03/20/22 07:21 BP 117/70 03/20/22 07:21 Pulse Ox 92 03/20/22 07:21 Laboratory Results - last 24 hr 03/19/22 03/20/22 03/20/22 07:50 06:14 06:14 WBC 11.00 H RBC 3.80 L Hgb 11.2 L Hct 33.4 L MCV 88 MCH 29.5 MCHC 33.5 RDW 13.3 Plt Count 196 MPV 9.3 Sodium 142 Potassium 4.0 Chloride 104 Carbon Dioxide 27.5 Anion Gap 10.5 BUN 20 H Creatinine 0.9 Estimated GFR/1.73 m2 >= 60.00 Glucose 120 H Calcium 8.2 L Patient ABO/Rh A Positive Antibody Screen NEGATIVE
[2022-03-20] MEDS: Docusate Sodium 100 MG CAP PO (09:03)
[2022-03-20] MEDS: Simvastatin 20 MG TAB PO (09:04)
[2022-03-20] MEDS: Acetaminophen 325 MG TAB 650 MG PO (09:04)
--- NOTE | 2022-03-20 11:34 | INITIAL_ITS ---
- If Service Date Differs Date of service: 03/20/22 Time of Service: 11:34 Care Management Initial Assess REASON FOR HOSPITALIZATION:: Urinary Retention PAST MEDICAL HISTORY/PAST SURGICAL HISTORY:: All Active Problems (Updated 03/19/22 @ 09:36 by Severiano Sylvester MD). Urinary retention (Acute). Seborrheic keratoses (Acute). Skin tag (Acute). Encounter for routine history and physical examination (Acute). Elevated prostate specific antigen [PSA] (Acute 11/28/11). doubled 04-17, negative bx 2008. Elevated fasting blood sugar (Acute 08/17/15). Essential hypertension (Acute 04/27/13). Hyperlipidemia (Acute 11/28/11). PCEq 12%; LDL baseline 153. Incomplete bladder emptying (Acute 11/22/15). Obesity (Acute 05/07/13). Laceration of hand (Acute) PREVIOUS FUNCTIONAL STATUS/SOCIAL/FAMILY SUPPORTS:: Naren lives in [place], [place] with his Stephanie. He does not have any children of his own but his has 3. They had 3 grandchildren but one is . 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 He receives no community services and is independent at baseline. CURRENT FUNCTIONAL STATUS:: Naren was sitting up in a chair when CM met with him. He was pleasant and open to conversation.Naren stated that he is feeling pretty well. His urine is clearing and he has been told that he may discharge tomorrow. Naren spoke about his 19 year old grandson who about a year ago and how difficult it has been for the entire family. Naren also spoke about his upcoming eye surgery in April. He has carolina waiting for quite some time and shared that he hopes nothing interferes with his ability to have the surgery. ADVANCE DIRECTIVES:: On file at [facility]. [facility]- Summer Grey (sister) Has patient been provided with info about the portal/API?: Yes Did the patient sign up for the portal?: Yes (previously) INSURANCE COVERAGE / FINANCIAL ISSUES:: medicare. [employer] CURRENT HOME/COMMUNITY SERVICES/EQUIPMENT:: none PRIMARY CARE PHYSICIAN:: Beth Morrison POTENTIAL DISCHARGE NEEDS:: Follow up with Urology, PCP and Plan of care PATIENT/FAMILY EDUCATION NEEDS:: Review discharge instructions, limitations, follow up plan, activity, discuss Ask Me Three TRANSPORTATION:: via private vehicle with family PLAN:: Naren will likely be discharged home with no new services. He will follow up with Urology, his PCP and plan of care and transport with family. CM will support Naren and his discharge planning concerns.
--- NOTE | 2022-03-20 12:15 | PHA.REVIEW ---
Pharmacy Admission Review - Admission Clinical Review (Last Reviewed 01/29/22 @ 19:02 by Cami Walker NP) Urinary retention (Acute) Elevated prostate specific antigen [PSA] (Acute 11/28/11) latex Allergy (Unknown, Verified 03/19/22 07:33) eyes run Penicillins Allergy (Unknown, Verified 03/19/22 07:33) THROAT SWELLING finasteride Allergy (Verified 03/19/22 07:33) rash/itching ibuprofen Allergy (Verified 03/19/22 07:33) Resuscitation Status Full Code Height 5 ft 10 in Weight 101.5 kg - Renal Dosing Renal Dosing: BUN 20 mg/dL (7-18) H 03/20/22 06:14 Creatinine 0.9 mg/dL (0.70-1.30) 03/20/22 06:14 Medications needing adjustments: Reviewed (Crcl ~89.9 mL/min using adjusted body weight; current meds okay) - Anticoagulation Anticoagulation: Hgb 11.2 g/dL (13.5-17.5) L 03/20/22 06:14 Hct 33.4 % (40.0-50.0) L 03/20/22 06:14 Plt Count 196 10^3/uL (130-400) 03/20/22 06:14 Creatinine 0.9 mg/dL (0.70-1.30) 03/20/22 06:14 DVT Prophylaxis: Reviewed (pt has SCDs ordered) Therapeutic Anticoagulation: N/A - Opiate Usage Evaluate Pain Scale/Pains Meds: Reviewed Scheduled Bowel Reg ordered if on Opiates?: Yes - Relevant Labs Sodium 142 mmol/L (136-145) 03/20/22 06:14 Potassium 4.0 mmol/L (3.5-5.1) 03/20/22 06:14 Chloride 104 mmol/L (98-107) 03/20/22 06:14 Electrolytes, C-Reactive P, ESR: Reviewed - DM Control DM Control: Glucose 120 mg/dL (74-106) H 03/20/22 06:14 Insulin Dosing: N/A (BG mildly elevated. No DM noted in pt's medical history, previous A1c was 5.7 on 09/05/21) - Heart Failure/WV EF%, KIMBERLYN's, B-Blockers, Diuretics: N/A - BP Control BP Control: Blood Pressure 117/70 If elevated: Reviewed (BP has been low to normal most of admission so far.) - Qtc Review If Elevated: N/A - IV to PO Switch IV Medications: Reviewed - Home Meds Home Med List reviewed: Reviewed (magnesium) - Current meds Current Medication Order Review: Reviewed - Comments Comments/Follow Ups: Watch VS, labs and for med changes.
--- NOTE | 2022-03-20 12:46 | DSE_ITS ---
DS: Diagnosis Discharge Diagnosis (1) Urinary retention: Status: Acute (2) Elevated prostate specific antigen [PSA]: Status: Acute Discharge Plan Disposition Patient Disposition: HOME Condition: Stable Discharge Details Reason For Visit: Urinary Retention Admit Date/Time: 03/19/22 07:24 Admit Provider: Severiano Sylvester Attending Provider: Severiano Sylvester Primary Care Provider: Beth Morrison Hospital Course Hospital Course: The patient was admitted and taken to the operating 03/19/2022 where he underwent a simple retropubic prostatectomy. Following the procedure, he was admitted to the medical surgical unit for continuous bladder irrigation. His IV fluid was discontinued when he was able to tolerate oral nutrition and medications. Once the bladder irrigation became clear, the irrigation was discontinued and the patient was deemed appropriate for discharge. Home Meds and New Rx's Prescriptions: New tramadol 50 mg tablet 50 mg PO Q6H PRN (Reason: pain) Qty: 20 0RF Rx Instructions: may take along with NSAIDS and tylenol No Action magnesium 250 mg tablet 500 mg PO DAILY Label Comments: pt reports he last took this 6 months ago tamsulosin [Flomax] 0.4 mg capsule 0.8 mg PO DAILY Qty: 90 4RF simvastatin 20 mg tablet 20 mg PO DAILY Discharge Instructions Additional Instructions: Catheter plug to irrigation port of catheter Drainage port of catheter to leg bag Followup @ 1 week for catheter removal Followup appt @ 2 weeks for pathology results and symptom check OK to shower Activity:: no lifting over 10 pounds Equipment/Supplies:: caro to leg bag Diet:: As Tolerated DS: Summary Time Spent with Patient providing and/or coordinating discharge services: Less than 30 minutes Status at Discharge Functional status at discharge: independent ambulation Overall status at discharge: patient is progressing back to baseline Mental Status: mental status grossly normal Speech and Movement: speech and movement normal Mood: congruent mood Affect: normal affect Exam Narrative Exam Narrative: At the time of this charge, he appears comfortable. His vital signs are documented elsewhere The surgical incision is healing nicely with no surrounding erythema. His Caro catheter is patent his urine is transparent He is awake and alert Psych Mental Status: mental status grossly normal Speech and Movement: speech and movement normal Mood: congruent mood Affect: normal affect DS: Data Vitals/I&O Vitals and I&O: Vital Signs Temperature 37.6 C H 03/20/22 07:21 Temperature Source Tympanic 07/12/22 07:21 Pulse 73 03/20/22 07:21 Pulse Rhythm Regular 03/20/22 08:59 Respiratory Rate 18 03/20/22 07:21 Respiratory Effort 03/20/22 08:59 Respiratory Depth Normal 03/20/22 08:59 Respiratory Pattern Normal 03/20/22 08:59 Blood Pressure 117/70 03/20/22 07:21 Pulse Oximetry 92 03/20/22 07:21 Respiratory End-tidal CO2 25 03/19/22 12:40 Oxygen Delivery Method Room Air 03/20/22 07:21 Oxygen Flow Rate 0 03/20/22 07:21 Pain Level 2 03/20/22 10:04 Comment pT stated that the 11/16 is more of a discomfort. 03/19/22 13:10 Intake & Output 03/19/22 03/20/22 03/20/22 23:59 11:59 23:59 Intake Total 1304.667 / 2108.667 976.667 / 976.667 Output Total 8400 / 8400 08677 / 09245 Balance -7095.333 / -6291.333 -97668.333 / -72750.333 Intake: IV 1064.667 / 1868.667 726.667 / 726.667 Oral 240 / 240 250 / 250 Output: Urine 8400 / 8400 37041 / 76536 Other: Urine Color [place] Urine Appearance Clear Clear Urine Odor Normal Comment no flow noted 1 small clot , hand irrigated twice, flow recommenced Emesis Description None Voiding Methods Indwelling Catheter Data Completed and Pending Labs on day of discharge: Labs from last 24 hours 03/20/22 03/20/22 06:14 06:14 WBC 11.00 H RBC 3.80 L Hgb 11.2 L Hct 33.4 L MCV 88 MCH 29.5 MCHC 33.5 RDW 13.3 Plt Count 196 MPV 9.3 Sodium 142 Potassium 4.0 Chloride 104 Carbon Dioxide 27.5 Anion Gap 10.5 BUN 20 H Creatinine 0.9 Estimated GFR/1.73 m2 >= 60.00 Glucose 120 H Calcium 8.2 L PFSH All Active Problems (Updated 03/19/22 @ 09:36 by Severiano Sylvester MD) Urinary retention (Acute) Seborrheic keratoses (Acute) Skin tag (Acute) Encounter for routine history and physical examination (Acute) Elevated prostate specific antigen [PSA] (Acute 11/28/11) doubled -, negative bx 2008 Elevated fasting blood sugar (Acute 08/17/15) Essential hypertension (Acute 04/27/13) Hyperlipidemia (Acute 11/28/11) PCEq 12%; LDL baseline 153 Incomplete bladder emptying (Acute 11/22/15) Obesity (Acute 05/07/13) Laceration of hand (Acute) Family History Father Cancer intestinal per pt Hypertension Mother , MVA No problems noted. Sister Cancer Social History Smoking/Tobacco Use Status: Never Smoking risk assessment performed?: Yes Alcohol Intake: former Drug use: Never Substance use type: does not use Adopted: No Household members: significant other Housing: house Number of Children: 3 number of grandchildren: 3 Communication Needs: Corrective Lenses Do you need help understanding health information?: Never current occupation: retired Pets and animals: Yes Sexually active: Yes Do you think of yourself as: straight/heterosexual Current gender identity: male What is your relationship status?: How often do you talk on the phone with friends or family?: once per week Do you belong to any clubs or organized social groups?: no Panel score (0-1 are the most socially isolated patients): 1 What type of physical activity do you participate in: walking Duration: 30-45 minutes/day Frequency: 1-2 times per week Special ghazal needs: No Seatbelt use: sometimes Helmet use: No Drive intox or ride w/intox street flusher driver: No Working smoke detector in home: Yes Fire extinguisher in home: Yes Carbon monox detector in home: Yes Do you feel safe at home: Yes Do you feel safe in your relationship?: Yes
[2022-03-20 15:23] VITALS: BP 109/55; PULSE 89; RESP 18; TEMP 36.7; O2SAT 96
== END 2022-03-20 16:14 | disposition home or self-care (01) | DRG 708 ==
LOC: PDS 10:33 → MS 13:10
PROVIDERS: Admitting Provider Urology; PCP Nurse Practitioner; Visit Provider Urology
PROC: 0VT00ZZ Resection of Prostate, Open Approach (ICD-10-PCS; CPT 55831; principal; 2022-03-19 09:45)
DX: N40.1 Benign prostatic hyperplasia with lower urinary tract symptoms (principal); R33.8 Other retention of urine; I10 Essential (primary) hypertension; E78.5 Hyperlipidemia, unspecified; E66.9 Obesity, unspecified; R97.20 Elevated prostate specific antigen [PSA]; L82.1 Other seborrheic keratosis; Z68.32 Body mass index [BMI] 32.0-32.9, adult
CPT/HCPCS: 55831; 36415; 80048; 85027; 86850; 86900; 86901; 88307; 88361; J1100; J1580; J1885; J2405; J2704

== ENCOUNTER → 2022-03-27 13:54 | Outpatient (BNVA) | payer MEDICARE, OTHER, SELFPAY | PROVIDERS: PCP Nurse Practitioner; Referring Provider Nurse Practitioner; Visit Provider Nurse Practitioner Gerontology | DX: R33.8 Other retention of urine (principal) ==

== ENCOUNTER → 2022-04-02 11:44 | Outpatient (BNVA) | payer MEDICARE, OTHER, SELFPAY | PROVIDERS: PCP Nurse Practitioner; Referring Provider Nurse Practitioner; Visit Provider Urology | DX: T14.8XXA Other injury of unspecified body region, initial encounter (principal); L08.9 Local infection of the skin and subcutaneous tissue, unspecified ==

== ENCOUNTER → 2022-04-03 07:52 | Outpatient (BNVA) | payer MEDICARE, OTHER, SELFPAY | PROVIDERS: PCP Nurse Practitioner; Referring Provider Nurse Practitioner; Visit Provider Nurse Practitioner Gerontology | DX: Z48.816 Encounter for surgical aftercare following surgery on the genitourinary system (principal); L08.9 Local infection of the skin and subcutaneous tissue, unspecified; T14.8XXA Other injury of unspecified body region, initial encounter ==

== ENCOUNTER → 2022-04-04 07:58 | Outpatient (BNVA) | payer MEDICARE, OTHER, SELFPAY | PROVIDERS: PCP Nurse Practitioner; Referring Provider Nurse Practitioner; Visit Provider Nurse Practitioner Gerontology | DX: Z48.816 Encounter for surgical aftercare following surgery on the genitourinary system (principal); L08.9 Local infection of the skin and subcutaneous tissue, unspecified; T14.8XXA Other injury of unspecified body region, initial encounter ==

== ENCOUNTER 2022-04-05 11:20 | Outpatient (REF) | payer MEDICARE, OTHER, SELFPAY | END 2022-04-05 11:21 | disposition home or self-care (01) | LOC: LBN 11:20 | PROVIDERS: PCP Nurse Practitioner; Visit Provider Nurse Practitioner Gerontology | DX: T81.49XA Infection following a procedure, other surgical site, initial encounter; Z90.79 Acquired absence of other genital organ(s) | CPT/HCPCS: 87070; 87205 ==

== ENCOUNTER → 2022-04-06 14:49 | Outpatient (BNVA) | payer MEDICARE, OTHER, SELFPAY | PROVIDERS: PCP Nurse Practitioner; Referring Provider Nurse Practitioner; Visit Provider Urology | DX: L08.9 Local infection of the skin and subcutaneous tissue, unspecified (principal); T81.40XA Infection following a procedure, unspecified, initial encounter ==

== ENCOUNTER → 2022-04-09 14:16 | Outpatient (BNVA) | payer MEDICARE, OTHER, SELFPAY | PROVIDERS: PCP Nurse Practitioner; Referring Provider Nurse Practitioner; Visit Provider Urology | DX: Z90.79 Acquired absence of other genital organ(s) (principal); T14.8XXA Other injury of unspecified body region, initial encounter; L08.9 Local infection of the skin and subcutaneous tissue, unspecified ==

== ENCOUNTER 2022-04-16 07:23 | Day surgery (SDC) | payer MEDICARE, OTHER, SELFPAY ==
[2022-04-16] MEDS: Tropicam./Phenyleph. (1/2.5%) 5 ML BTL OD ×3 (07:49→08:01)
--- NOTE | 2022-04-16 08:11 | W.ANESPRE ---
General Info Date of Service Date Performed: 04/16/22 Height: 5 ft 10 in Weight: 97.8 kg Body Mass Index (BMI): 30.9 Surgical Procedure: Operation Date: 04/16/22 09:40 Proposed Procedure Side Surgeon p Cataract Extraction with IOL Implant Right Polo Phelps MD Meds Allergies and Home Medications Allergies Allergy/AdvReac Type Severity Reaction Status Date / Time latex Allergy Unknown eyes run Verified 04/16/22 07:42 Penicillins Allergy Unknown THROAT Verified 04/16/22 07:42 SWELLING finasteride Allergy rash/itchin Verified 04/16/22 07:42 g ibuprofen Allergy Verified 04/16/22 07:42 Home Medication Medication Instructions Recorded magnesium 250 mg tablet 500 mg PO DAILY 09/12/21 simvastatin 20 mg tablet 20 mg PO DAILY 02/07/22 tamsulosin 0.4 mg capsule 1 cap PO DAILY 04/16/22 Current Visit Medications: Current Medications Generic Name Dose Route Start Last Admin Trade Name Freq PRN Reason Stop Dose Admin Acetaminophen 1,000 mg 04/16/22 06:00 Acetaminophen 500 Mg Tab PO Q4H PRN PRN Miscellaneous Medication 0 ml 04/16/22 06:00 Prednisolone 1%, Moxifloxacin 0.5%, Nepafenac 0.1% 5ml Btl OD DIRECTED [facility] Miscellaneous Medication 0 ml 04/16/22 06:00 04/16/22 08:01 Tropicam./Phenyleph. (1/2.5%) 5 Ml Btl OD 1 drp DIRECTED AMAURY Administration Tetracaine HCl 0 ml 04/16/22 06:00 Tetracaine 0.5% 4 Ml Btl OD DIRECTED [facility] PFSH Active Problems Active Problems: Problem Status Onset Code Laceration of hand S61.419A Obesity 05/07/13 E66.9 Incomplete bladder emptying 11/22/15 R33.9 Hyperlipidemia 11/28/11 E78.5 Essential hypertension 04/27/13 I10 Elevated fasting blood sugar 08/17/15 R73.01 Elevated prostate specific antigen [PSA] 11/28/11 R97.20 Encounter for routine history and physical examination Z00.00 Skin tag L91.8 Seborrheic keratoses L82.1 Urinary retention R33.9 Surgical History Surgical History Hx of prostatectomy Tobacco Smoking/Tobacco Use Status: Never Passive smoking exposure: No Alcohol Alcohol Intake: former Substance Use Substance use: Never Substance use type: does not use Vital Signs and Lab Results Lab Results Blood Type / Crossmatch: Patient ABO/Rh A Positive 03/19/22 Antibody Screen NEGATIVE 03/19/22 Complete Blood Count: White Blood Count 11.00 10^3/uL (4.4-10.8) H 03/20/22 06:14 Red Blood Count 3.80 10^6/uL (4.36-5.78) L 03/20/22 06:14 Hemoglobin 11.2 g/dL (13.5-17.5) L 03/20/22 06:14 Hematocrit 33.4 % (40.0-50.0) L 03/20/22 06:14 Platelet Count 196 10^3/uL (130-400) 03/20/22 06:14 Complete Metabolic Panel: Sodium Level 142 mmol/L (136-145) 03/20/22 06:14 Potassium Level 4.0 mmol/L (3.5-5.1) 03/20/22 06:14 Chloride Level 104 mmol/L (98-107) 03/20/22 06:14 Carbon Dioxide Level 27.5 mmol/L (21.0-32.0) 03/20/22 06:14 Blood Urea Nitrogen 20 mg/dL (7-18) H 03/20/22 06:14 Creatinine 0.9 mg/dL (0.70-1.30) 03/20/22 06:14 Estimated GFR/1.73 m2 >= 60.00 (mL/min/1.73m2) 03/20/22 06:14 Calcium Level 8.2 mg/dL (8.5-10.1) L 03/20/22 06:14 Glucose Level 120 mg/dL (74-106) H 03/20/22 06:14 Liver Function Panel: No Data to Display Coagulation Panel: No Data to Display Cardiac Panel: No Data to Display Arterial Blood Gas: No Data to Display Venous Blood Gas: No Data to Display Pancreas Panel: No Data to Display Thyroid Panel: No Data to Display Infectious Disease: No Data to Display Blood Cultures: No Data to Display Toxicology Panel: No Data to Display Anesthesia Assessment and Plan Anesthesia History Personal History: No History of Anesthesia Complications Family History: No Family History of Anesthesia Complications Exercise Tolerance Exercise Tolerance: Metabolic Equivalents>4 Pertinent Negatives Pertinent Negatives: No Symptoms of GERD Cardiac & Pulmonary Exam Cardiac Exam: Normal S1/S2 Heart Sounds Pulmonary Exam: Clear Bilateral Breath Sounds Implantable Cardiac Device Does patient have a Pacemaker or an ICD?: No Airway Exam Known Difficult Airway: No Mallampati Class: 2 Mouth Opening: Normal (> 3cm) Thyromental Distance: Greater than 3 cm Neck Range of Motion: Full ROM Neck Circumference: Normal Teeth Condition: Normal Dentition ASA Classification ASA Score: ASA 2 Emergency Case?: No NPO Status NPO Status: NPO Clears >2 hours, Solids >8 hours Anesthesia Plan Resuscitation Status: Full Code Anesthesia Technique: MAC Anesthesia Airway Planned: Natural Airway Monitors Used: Standard Monitors
[2022-04-16 08:12] VITALS: BMI 30.9
[2022-04-16] MEDS: Tetracaine 0.5% 4 ML BTL OD (08:47)
[2022-04-16] MEDS: Lidocaine 2% Jelly 6 ML SYR (08:48)
[2022-04-16] MEDS: Povidone-Iodine Ophth 30 ML BTL (08:49)
[2022-04-16] MEDS: Balanced Salt Soln.-PLUS 500 ML BAG (08:54)
[2022-04-16] MEDS: Trypan Blue 0.06% 0.5 ML SYR (08:55)
[2022-04-16] MEDS: Duovisc Viscoelastic System EACH 1 EACH (09:13)
[2022-04-16 09:30] VITALS: BP 124/79; PULSE 70; RESP 16; TEMP 36.7; O2SAT 94
--- NOTE | 2022-04-16 09:32 | W.PM.DSUDISC ---
Discharge Plan Disposition Patient Disposition: HOME Condition: Good Discharge Details Attending Provider: Polo Phelps Primary Care Provider: Beth Morrison Home Meds and New Rx's Prescriptions: No Action magnesium 250 mg tablet 500 mg PO DAILY Label Comments: pt reports he last took this 6 months ago simvastatin 20 mg tablet 20 mg PO DAILY tamsulosin 0.4 mg capsule 1 cap PO DAILY Label Comments: TAKE 2 CAPSULES BY MOUTH DAILY Discharge Instructions Stand Alone Forms: Post-op Topical Cataract, Franco Fowler (DSU) Discharge Orders Discharge Orders: Discharge Order (Routine); Ordered 04/16/22 Ordered By: Polo Phelps DS: Diagnosis Discharge Diagnosis (1) Posterior subcapsular age-related cataract, right eye: Status: Resolved (2) Nuclear sclerotic cataract of right eye: Status: Resolved (3) Cortical cataract of right eye: Status: Resolved
--- NOTE | 2022-04-16 09:33 | W.PM.OP ---
Date of service: 04/16/22 Time of Service: 09:33 Operative Note Operative Note DATE OF PROCEDURE: 04/16/22 PRE-OP DIAGNOSIS: Dense nuclear/cortical/posterior subcapsular cataract, right eye Poor red reflex, right eye secondary to cataract Poorly dilating pupil secondary to Flomax use POST-OP DIAGNOSIS: same PROCEDURE: Cataract extraction using phacoemulsification with intraocular lens implant, right eye, with pupillary dilation using Malyugin Ring and capsular staining using Vision Blue; implantation of capsular tension ring SURGEON: Polo Phelps Refer to Anesthesia Record ESTIMATED BLOOD LOSS: 0 PATHOLOGY: none sent COMPLICATIONS: None Patient was transported to: same day Patient's condition: stable Implants: Faraz and Faraz / [employer] Tecnis [id number] Morcher Type 15A capsular tension ring Indications: Progressive decreased vision due to cataract, right eye Procedure Description: CATARACT SURGERY OPERATIVE REPORT PREOPERATIVE DIAGNOSIS: 1. Dense nuclear/cortical/posterior subcapsular cataract, right eye 2. Poorly dilating pupil, right eye 3. Poor red reflex, right eye POSTOPERATIVE DIAGNOSIS: Same OPERATION: 1. Cataract extraction using phacoemulsification with posterior chamber intraocular lens implant, right eye. 2. Pupillary dilation and iris stabilization using Malyugin Ring 3. Capsular staining with VIsion Blue 4. Insertion of capsular tension ring IOL: IOL Security Incident Response Specialist/Model: Faraz & Faraz / SELENE Tecnis [id number] IOL Power: + 21.5 diopters IOL Serial Number: [id number] Optic Diameter: 6.0mm Haptic/Overall Diameter: 13.0mm PHACO INFO: Sergei [employer] TVurion Vision System with OZil and Active Fluidics Cumulative Dispersed Energy (CDE): 28.42 seconds SURGEON: Polo Phelps MD, DIPAK ANESTHESIA: Monitored Anesthesia Care (MAC), with local sub-tenon's anesthetic infiltration COMPLICATIONS: None SPECIMENS: None INDICATIONS FOR PROCEDURE: The patient is a 72-year-old gentleman with history of progressive decreased vision in his right thigh secondary to the development of cataract. He is noted to have a dense nuclear/cortical/posterior subcapsular cataract with counting fingers vision. In addition, he has a poorly dilating pupil from Flomax use. The option of cataract surgery was offered to the patient and he wished to proceed. PROCEDURE: The correct surgical eye was identified and marked as the right eye and the pupil was dilated in the preoperative area using mydriatics and cycloplegics. The dilated pupil size was 4.0 mm. The patient was brought to the operating room where cardiopulmonary monitoring was instituted and surgical time-out was performed, confirming the correct operative eye and IOL power. Topical anesthesia was administered and ophthalmic povidone-iodine 5% was instilled into the conjunctival fornices. Lidocaine gel was applied to the cornea and the tg-ocular area was prepped with Betadine 10% solution and draped in the usual sterile fashion for intraocular surgery, including an aperture drape. A Tegaderm transparent film dressing was cut in half and used to cover the lashes and lid margins. Care was taken to sequester the lashes and lid margins under the Tegaderm dressing. A lid speculum was placed between the lids of the operative eye and the Coby-Roxann operating microscope was maneuvered into position. Pietro scissors were then used to make a conjunctival buttonhole approximately 6mm posterior to the limbus in the inferonasal quadrant. Blunt dissection was carried out to expose bare sclera, and a blunt-tipped sub-tenon?s anesthesia cannula was introduced and passed posteriorly along the globe where non-preserved plain lidocaine was injected into posterior sub-Tenon?s space. A sideport knife was used to make a paracentesis port inferiortemporally. Intraocular phenylephrine/lidocaine was injected into the anterior chamber. Air was then injected into anterior chamber, followed by Vision Blue, which was painted over the anterior capsule and then irrigated out with BSS. The anterior chamber was then filled with viscoelastic. A 2.4mm keratome knife was used to construct a 2-plane near-clear corneal tunnel extending 2.0mm into clear cornea superiortemporally. A 7.0 mm Malyugin Ring was then inserted into the pupillary space and engaged with the Kuglen hook. The iris was noted to be quite floppy and flaccid. A flap was raised on the anterior capsule and capsulorhexis forceps were used to complete a continuous curvilinear capsulorhexis of 5.0 mm. The anterior capsule was very thin, and significant generalized zonular laxity was also noted during capsulorrhexis creation. Balanced salt solution was then used to perform cortical cleaving hydrodissection and nuclear hydrodelineation until the lens could be freely rotated within the capsular bag. The lens nucleus was then disassembled and removed within the capsular bag and iris plane using phacoemulsification. Nuclear splitters used to aid in cracking the nucleus into to have, to reduce stress on the zonules. Viscoat was used intermittently to protect the corneal endothelium due to the dense cataract. Residual cortical material was removed using the 45-degree angled silicone I/A tip with 0.3mm port. The posterior capsule was carefully polished to remove as much residual lens epithelial cells as safely possible. The capsular bag was then inflated and the anterior chamber deepened with viscoelastic. A Morcher Type 15A capsular tensioning was then carefully inserted into the capsular bag without difficulty. The lens implant described above was inserted into the capsular bag using the [employer] Rea Injector. A Kuglen hook was used to dial the IOL into position. The Malyugin Ring was removed in the reverse order of its insertion. Residual viscoelastic was then removed first from posterior to the IOL, then from the anterior chamber using the I/A handpiece. The lens implant was noted to center nicely within the capsular bag. The incisions were stromally hydrated, and the anterior chamber was reformed using BSS. Then 0.5cc of moxifloxacin 1.0mg/ml were injected into the capsular bag and anterior chamber. The incisions were checked with a Weck spear and found to be secure. Several drops of ophthalmic povidone-iodine 5% were then applied to the eye followed by two drops of Imprimis combination prednisoone/moxifloxacin/nepafenac solution. The drapes were removed and a clear plastic protective eye shield was placed over the eye. The patient was then returned to Same Day Surgery in stable condition.
--- NOTE | 2022-04-16 09:45 | W.ANESPOSTOP ---
Postoperative Evaluation Date, Time and Location Date Performed: 04/16/22 Time Performed: 09:35 Patient Location: Day Surgery Unit Vital Signs Most Recent Imported Vital Signs: Most Recent Vital Signs Temp Pulse Resp BP Pulse Ox 36.7 C 70 16 124/79 94 04/16/22 09:30 04/16/22 09:30 04/16/22 09:30 04/16/22 09:30 04/16/22 09:30 Pain Score Most Recent Pain Score: Most Recent Pain Score Pain Level 0 04/16/22 09:30 Assessment Mental Status: Awake (Alert & Oriented to Patient Baseline) Airway and Respiratory Function: Patent airway with normal (patient baseline) respiratory exam Cardiovascular Function: Hemodynamically Stable Hydration Status: Adequately Hydrated Nausea & Vomiting: No Nausea or Vomiting Pain: Pt. Denies Any Pain Peripheral Nerve Block: Patient did not receive a nerve block
== END 2022-04-16 09:48 | disposition home or self-care (01) ==
LOC: SUR 07:23
PROVIDERS: PCP Nurse Practitioner; Visit Provider Ophthalmology
PROC: (CPT 66982; principal; 2022-04-16 09:30)
DX: H25.041 Posterior subcapsular polar age-related cataract, right eye (principal); H57.03 Miosis; H25.89 Other age-related cataract
CPT/HCPCS: 66982; V2632

== ENCOUNTER 2022-04-30 11:01 | Day surgery (SDC) | payer MEDICARE, OTHER, SELFPAY ==
[2022-04-30 11:43] VITALS: BP 134/74; PULSE 69; RESP 16; TEMP 36.7; O2SAT 97
[2022-04-30] MEDS: Tropicam./Phenyleph. (1/2.5%) 5 ML BTL OS ×3 (11:55→12:05)
--- NOTE | 2022-04-30 12:43 | W.ANESPRE ---
General Info Date of Service Date Performed: 04/30/22 Height: 5 ft 10 in Weight: 97.8 kg Body Mass Index (BMI): 30.9 Surgical Procedure: Operation Date: 04/30/22 14:40 Proposed Procedure Side Surgeon p Cataract Extraction with IOL Implant Left Polo Phelps MD Meds Allergies and Home Medications Allergies Allergy/AdvReac Type Severity Reaction Status Date / Time latex Allergy Unknown eyes run Verified 04/30/22 11:39 Penicillins Allergy Unknown THROAT Verified 04/30/22 11:39 SWELLING finasteride Allergy rash/itchin Verified 04/30/22 11:39 g ibuprofen Allergy Verified 04/30/22 11:39 Home Medication Medication Instructions Recorded magnesium 250 mg tablet 500 mg PO DAILY 09/12/21 simvastatin 20 mg tablet 20 mg PO DAILY 02/07/22 tamsulosin 0.4 mg capsule 1 cap PO DAILY 04/16/22 Current Visit Medications: Current Medications Generic Name Dose Route Start Last Admin Trade Name Freq PRN Reason Stop Dose Admin Acetaminophen 1,000 mg 04/28/22 06:00 Acetaminophen 500 Mg Tab PO Q4H PRN PRN Miscellaneous Medication 0 ml 04/28/22 06:00 Prednisolone 1%, Moxifloxacin 0.5%, Nepafenac 0.1% 5ml Btl OS DIRECTED AMAURY Miscellaneous Medication 0 ml 04/28/22 06:00 04/30/22 12:05 Tropicam./Phenyleph. (1/2.5%) 5 Ml Btl OS 1 drp DIRECTED AMAURY Administration Tetracaine HCl 0 ml 04/30/22 06:00 Tetracaine 0.5% 4 Ml Btl OS DIRECTED AMAURY PFSH Active Problems Active Problems: Problem Status Onset Code Posterior subcapsular age-related cataract, right eye H25.041 Nuclear sclerotic cataract of right eye H25.11 Cortical cataract of right eye H26.9 Laceration of hand S61.419A Obesity 05/07/13 E66.9 Incomplete bladder emptying 11/22/15 R33.9 Hyperlipidemia 11/28/11 E78.5 Essential hypertension 04/27/13 I10 Elevated fasting blood sugar 08/17/15 R73.01 Elevated prostate specific antigen [PSA] 11/28/11 R97.20 Encounter for routine history and physical examination Z00.00 Skin tag L91.8 Seborrheic keratoses L82.1 Urinary retention R33.9 Surgical History Surgical History Hx of prostatectomy Tobacco Smoking/Tobacco Use Status: Never Passive smoking exposure: No Alcohol Alcohol Intake: former Substance Use Substance use: Never Substance use type: does not use Vital Signs and Lab Results Vital Signs Most Recent Vital Signs in EMR: Most Recent Vital Signs Temp Pulse Resp BP Pulse Ox 36.7 C 69 16 134/74 97 04/30/22 11:43 04/30/22 11:43 04/30/22 11:43 04/30/22 11:43 04/30/22 11:43 Lab Results Blood Type / Crossmatch: No Data to Display Complete Blood Count: No Data to Display Complete Metabolic Panel: No Data to Display Liver Function Panel: No Data to Display Coagulation Panel: No Data to Display Cardiac Panel: No Data to Display Arterial Blood Gas: No Data to Display Venous Blood Gas: No Data to Display Pancreas Panel: No Data to Display Thyroid Panel: No Data to Display Infectious Disease: No Data to Display Blood Cultures: No Data to Display Toxicology Panel: No Data to Display Anesthesia Assessment and Plan Anesthesia History Personal History: No History of Anesthesia Complications Family History: No Family History of Anesthesia Complications Exercise Tolerance Exercise Tolerance: Metabolic Equivalents>4 Cardiac & Pulmonary Exam Cardiac Exam: Normal S1/S2 Heart Sounds Pulmonary Exam: Clear Bilateral Breath Sounds Implantable Cardiac Device Does patient have a Pacemaker or an ICD?: No Airway Exam Known Difficult Airway: No Mallampati Class: 2 Mouth Opening: Normal (> 3cm) Thyromental Distance: Greater than 3 cm Neck Range of Motion: Full ROM Neck Circumference: Normal Teeth Condition: Normal Dentition ASA Classification ASA Score: ASA 2 Emergency Case?: No NPO Status NPO Status: NPO Clears >2 hours, Solids >8 hours Anesthesia Plan Resuscitation Status: Full Code Anesthesia Technique: MAC Anesthesia Airway Planned: Natural Airway Monitors Used: Standard Monitors
[2022-04-30 12:45] VITALS: BMI 30.9
[2022-04-30] MEDS: Tetracaine 0.5% 4 ML BTL OS (13:20)
[2022-04-30] MEDS: Balanced Salt Soln.-PLUS 500 ML BAG (13:21)
[2022-04-30] MEDS: Lidocaine 2% Jelly 6 ML SYR (13:22)
[2022-04-30] MEDS: Povidone-Iodine Ophth 30 ML BTL (13:23)
[2022-04-30 13:35] VITALS: BP 133/79; PULSE 64; RESP 16; TEMP 36.3; O2SAT 95
--- NOTE | 2022-04-30 13:35 | W.PM.DSUDISC ---
Discharge Plan Disposition Patient Disposition: HOME Condition: Good Discharge Details Attending Provider: Polo Phelps Primary Care Provider: Beth Morrison Home Meds and New Rx's Prescriptions: No Action magnesium 250 mg tablet 500 mg PO DAILY Label Comments: pt reports he last took this 6 months ago simvastatin 20 mg tablet 20 mg PO DAILY tamsulosin 0.4 mg capsule 1 cap PO DAILY Label Comments: TAKE 2 CAPSULES BY MOUTH DAILY Discharge Instructions Stand Alone Forms: Post-op Block Cataract, Post-op Topical Cataract, Franco Fowler (DSU) Discharge Orders Discharge Orders: Discharge Order (Routine); Ordered 04/30/22 Ordered By: Polo Phelps DS: Diagnosis Discharge Diagnosis (1) Posterior subcapsular age-related cataract of left eye: Status: Resolved (2) Nuclear sclerotic cataract of left eye: Status: Resolved (3) Cortical cataract of left eye: Status: Resolved
--- NOTE | 2022-04-30 13:36 | W.PM.OP ---
Date of service: 04/30/22 Time of Service: 13:36 Operative Note Operative Note DATE OF PROCEDURE: 04/30/22 PRE-OP DIAGNOSIS: Nuclear/cortical/posterior subcapsular cataract, left eye Poorly dilating pupil, left eye POST-OP DIAGNOSIS: same PROCEDURE: Cataract extraction by phacoemulsification with intraocular lens implantation, left eye, with pupillary expansion device SURGEON: Polo Phelps ANESTHESIA TYPE: Local By Surgeon and MAC Refer to Anesthesia Record ESTIMATED BLOOD LOSS: 0 PATHOLOGY: none sent COMPLICATIONS: None Patient was transported to: same day Patient's condition: stable Implants: Faraz and Faraz / [employer] Tecnis [id number] Indications: Progressive decreased vision, left eye Poorly dilating pupil, left eye. Procedure Description: CATARACT SURGERY OPERATIVE REPORT PREOPERATIVE DIAGNOSIS: 1. Nuclear/cortical/posterior subcapsular cataract, left eye 2. Poorly dilating pupil, left eye POSTOPERATIVE DIAGNOSIS: Same OPERATION: 1. Cataract extraction using phacoemulsification with posterior chamber intraocular lens implant, left eye. 2. Pupillary dilation and iris stabilization using Malyugin Ring IOL; IOL Hand Compositor/Model: Faraz & Faraz / SELENE Tecnis [id number] IOL Power: + 21.0 diopters IOL Serial Number: [id number] Optic Diameter: 6.0 mm Haptic/Overall Diameter: 13.00 mm PHACO INFO: Sergei [employer] Vision System with OZil and Active Fluidics Cumulative Dispersed Energy (CDE): 9.74 seconds SURGEON: Polo Phelps MD, DIPAK ANESTHESIA: Monitored Anesthesia Care (MAC), with local sub-tenon's anesthetic infiltration COMPLICATIONS: None SPECIMENS: None INDICATIONS FOR PROCEDURE: The patient is a 72-year-old male with history of diminished visual acuity in both eyes secondary to development of cataracts. He has already undergone cataract surgery in the right eye and is doing well postoperatively. He now presents for cataract surgery in the left eye. PROCEDURE: The correct surgical eye was identified and marked as the left eye and the pupil was dilated in the preoperative area using mydriatics, cycloplegics, and NSAIDS (except in aspirin allergic patients). The dilated pupil size was 4.0 mm.The patient elected to proceed without oral sedation. The patient was brought to the operating room where cardiopulmonary monitoring was instituted and surgical time-out was performed, confirming the correct operative eye and IOL power. Topical anesthesia was administered and ophthalmic povidone-iodine 5% was instilled into the conjunctival fornices. Lidocaine gel was applied to the cornea and the tg-ocular area was prepped with Betadine 10% solution and draped in the usual sterile fashion for intraocular surgery, including an aperture drape. A Tegaderm transparent film dressing was cut in half and used to cover the lashes and lid margins. Care was taken to sequester the lashes and lid margins under the Tegaderm dressing. A lid speculum was placed between the lids of the operative eye and the Coby-Roxann operating microscope was maneuvered into position. Pietro scissors were then used to make a conjunctival buttonhole approximately 6mm posterior to the limbus in the inferonasal quadrant. Blunt dissection was carried out to expose bare sclera, and a blunt-tipped sub-tenon?s anesthesia cannula was introduced and passed posteriorly along the globe where non-preserved plain lidocaine was injected into posterior sub-Tenon?s space. A sideport knife was used to make a paracentesis port superiorly/superiortemporally. Intraocular phenylephrine/lidocaine was injected into the anterior chamber. The anterior chamber was then filled with viscoelastic. A keratome knife was used to create a half-thickness groove at the limbus and then to construct a three-plane near-clear corneal tunnel extending 2.0mm into clear cornea at the temporal position. A 7.0 mm Malyugin Ring was then inserted into the pupillary space and engaged with the Kuglen hook. A flap was raised on the anterior capsule and capsulorhexis forceps were used to complete a continuous curvilinear capsulorhexis of 5.0 mm. Balanced salt solution was then used to perform cortical cleaving hydrodissection and nuclear hydrodelineation until the lens could be freely rotated within the capsular bag. The lens nucleus was then disassembled and removed within the capsular bag and iris plane using phacoemulsification. Residual cortical material was removed using the 45-degree angled silicone I/A tip with 0.3mm port. The posterior capsule was carefully polished to remove as much residual lens epithelial cells as safely possible. The capsular bag was then inflated and the anterior chamber deepened with viscoelastic. The lens implant described above was inserted into the capsular bag using the SELENE [employer] Injector. A Kuglen hook was used to dial the IOL into position. The Malyugin Ring was removed in the reverse order of its insertion. Residual viscoelastic was then removed first from posterior to the IOL, then from the anterior chamber using the I/A handpiece. The lens implant was noted to center nicely within the capsular bag. The incisions were stromally hydrated, and the anterior chamber was reformed using BSS. Then 0.5cc of moxifloxacin 1.0mg/ml were injected into the capsular bag and anterior chamber. The incisions were checked with a Weck spear and found to be secure. Several drops of ophthalmic povidone-iodine 5% were then applied to the eye followed by two drops of Imprimis combination prednisolone/moxifloxacin/nepafenac solution. The drapes were removed and a clear plastic protective eye shield was placed over the eye. The patient was then returned to Same Day Surgery in stable condition.
--- NOTE | 2022-04-30 13:45 | W.ANESPOSTOP ---
Postoperative Evaluation Date, Time and Location Date Performed: 04/30/22 Time Performed: 13:40 Patient Location: Day Surgery Unit Vital Signs Most Recent Imported Vital Signs: Most Recent Vital Signs Temp Pulse Resp BP Pulse Ox 36.3 C L 64 16 133/79 95 04/30/22 13:35 04/30/22 13:35 04/30/22 13:35 04/30/22 13:35 04/30/22 13:35 Pain Score Most Recent Pain Score: Most Recent Pain Score Pain Level 0 04/30/22 13:35 Assessment Mental Status: Awake (Alert & Oriented to Patient Baseline) Airway and Respiratory Function: Patent airway with normal (patient baseline) respiratory exam Cardiovascular Function: Hemodynamically Stable Hydration Status: Adequately Hydrated Nausea & Vomiting: No Nausea or Vomiting Pain: Pt. Denies Any Pain Peripheral Nerve Block: Patient did not receive a nerve block
== END 2022-04-30 13:52 | disposition home or self-care (01) ==
LOC: SUR 11:01
PROVIDERS: PCP Nurse Practitioner; Visit Provider Ophthalmology
PROC: (CPT 66982; principal; 2022-04-30 14:30)
DX: H25.042 Posterior subcapsular polar age-related cataract, left eye (principal); H57.03 Miosis; I10 Essential (primary) hypertension
CPT/HCPCS: 66982; V2632

== ENCOUNTER → 2022-05-18 13:45 | Outpatient (BNVA) | payer MEDICARE, OTHER, SELFPAY | PROVIDERS: PCP Nurse Practitioner; Referring Provider Nurse Practitioner; Visit Provider Urology | DX: R33.8 Other retention of urine (principal); R97.20 Elevated prostate specific antigen [PSA]; Z48.816 Encounter for surgical aftercare following surgery on the genitourinary system ==

== ENCOUNTER 2022-09-12 05:02 | Outpatient (CLI) | payer MEDICARE, OTHER, SELFPAY ==
[2022-09-12 11:32] LABS: HCT 45.8 % (40.0-50.0); HGB 14.9 g/dL (13.5-17.5); MCH 28.3 pg (27.0-33.0); MCHC 32.5 % (32.0-36.0); MCV 87 fL (80-95); MPV 9.7 fL (8.0-11.0); Platelet Count 159 10^3/uL (130-400); RBC 5.27 10^6/uL (4.36-5.78); RDW 14.2 % (11.8-14.1); RDW-SD 45.2 fL; WBC 8.27 10^3/uL (4.4-10.8)
[2022-09-12 11:46] LABS: Hemoglobin A1C 5.6 % (<5.7)
[2022-09-12 12:00] LABS: ALT 29 U/L (16-63); AST 26 U/L (15-37); Albumin 4.1 g/dL (3.4-5.0); Alkaline Phosphatase 65 U/L (46-116); Anion Gap 5.6 mmol/L (3-11); BUN 22 mg/dL (7-18); Bilirubin, Total 0.8 mg/dL (0.2-1.0); CO2 30.4 mmol/L (21.0-32.0); CREATININE 1.2 mg/dL (0.70-1.30); Calcium 9.3 mg/dL (8.5-10.1); Calculated LDL 68 mg/dL (<100); Chloride 104 mmol/L (98-107); Cholesterol 144 mg/dL (<200); Estimated GFR 64.65 (mL/min/1.73m2); Glucose 99 mg/dL (74-106); HDL Cholesterol 53 mg/dL (40-60); Potassium 4.6 mmol/L (3.5-5.1); Sodium 140 mmol/L (136-145); Total Protein 7.4 g/dL (6.4-8.2); Triglyceride 117 mg/dL (<150)
== END 2022-09-12 05:03 | disposition home or self-care (01) ==
LOC: LBO 05:02
PROVIDERS: PCP Nurse Practitioner; Visit Provider Nurse Practitioner
DX: I10 Essential (primary) hypertension (principal); E78.5 Hyperlipidemia, unspecified; R73.01 Impaired fasting glucose; E66.9 Obesity, unspecified
CPT/HCPCS: 36415; 80053; 80061; 85027; 83036

== ENCOUNTER 2022-09-25 02:01 | Outpatient (CLI) | payer MEDICARE, OTHER, SELFPAY ==
--- NOTE | 2022-09-25 07:00 | DI.US_ITS ---
Exam(s) US AAA SCREENING EXAM: US AAA SCREENING CLINICAL HISTORY: screening for aaa,z13.6 COMPARISON: No exams were available for comparison FINDINGS: There is no evidence of abdominal aortic aneurysm. Maximum diameter of the abdominal aorta is 2.5 cm . Diameter of the visualized common iliac arteries is upper normal. Both measure approximately 12 mill imeters. IMPRESSION: No ultrasound evidence of significant abdominal aortic aneurysm. DATA REPOSITORY:
== END 2022-09-25 02:21 ==
PROVIDERS: PCP Nurse Practitioner; Visit Provider Nurse Practitioner
DX: Z13.6 Encounter for screening for cardiovascular disorders (principal)
CPT/HCPCS: 76706

== ENCOUNTER 2022-11-07 02:59 | Outpatient (CLI) | payer MEDICARE, OTHER, SELFPAY ==
[2022-11-07 18:18] LABS: PSA, Diagnostic 2.3 ng/mL (<=6.5)
== END 2022-11-07 03:00 | disposition home or self-care (01) ==
PROVIDERS: PCP Nurse Practitioner; Visit Provider Urology
DX: R97.20 Elevated prostate specific antigen [PSA] (principal)
CPT/HCPCS: 36415; 84153

== ENCOUNTER → 2022-11-13 10:16 | Outpatient (BNVA) | payer MEDICARE, OTHER, SELFPAY | PROVIDERS: PCP Nurse Practitioner; Referring Provider Nurse Practitioner; Visit Provider Urology | DX: R97.20 Elevated prostate specific antigen [PSA] (principal) | CPT/HCPCS: 99213 ==

== ENCOUNTER 2023-05-16 04:26 | Outpatient (CLI) | payer MEDICARE, OTHER, SELFPAY ==
[2023-05-16 19:26] LABS: PSA, Diagnostic 2.4 ng/mL (<=6.5)
== END 2023-05-16 04:27 | disposition home or self-care (01) ==
LOC: LBO 04:27
PROVIDERS: Urology; PCP Nurse Practitioner; Visit Provider Nurse Practitioner
DX: R97.20 Elevated prostate specific antigen [PSA] (principal)
CPT/HCPCS: 36415; 84153

== ENCOUNTER → 2023-05-21 09:52 | Outpatient (BNVA) | payer MEDICARE, OTHER, SELFPAY | PROVIDERS: PCP Nurse Practitioner; Visit Provider Urology | DX: R97.20 Elevated prostate specific antigen [PSA] (principal) | CPT/HCPCS: 99212 ==

== ENCOUNTER 2023-09-12 03:46 | Outpatient (CLI) | payer MEDICARE, OTHER, SELFPAY ==
[2023-09-12 11:28] LABS: ALT 28 U/L (16-63); AST 17 U/L (15-37); Albumin 3.8 g/dL (3.4-5.0); Alkaline Phosphatase 84 U/L (46-116); Anion Gap 6.3 mmol/L (3-11); BUN 18 mg/dL (7-18); Bilirubin, Total 0.8 mg/dL (0.2-1.0); CO2 30.7 mmol/L (21.0-32.0); CREATININE 1.2 mg/dL (0.70-1.30); Calcium 9.1 mg/dL (8.5-10.1); Calculated LDL 66 mg/dL (<100); Chloride 101 mmol/L (98-107); Cholesterol 125 mg/dL (<200); Estimated GFR 64.25 (mL/min/1.73m2); Glucose 105 mg/dL (74-106); HDL Cholesterol 41 mg/dL (40-60); Potassium 4.2 mmol/L (3.5-5.1); Sodium 138 mmol/L (136-145); Total Protein 7.4 g/dL (6.4-8.2); Triglyceride 94 mg/dL (<150)
[2023-09-12 12:20] LABS: Hemoglobin A1C 5.8 % (<5.7)
== END 2023-09-12 03:47 | disposition home or self-care (01) ==
LOC: LBO 03:46
PROVIDERS: PCP Nurse Practitioner; Visit Provider Nurse Practitioner
DX: E66.9 Obesity, unspecified (principal); E78.5 Hyperlipidemia, unspecified
CPT/HCPCS: 36415; 80053; 80061; 83036

== ENCOUNTER 2024-05-15 08:42 | Outpatient (CLI) | payer MEDICARE, OTHER, SELFPAY ==
[2024-05-15 18:33] LABS: PSA, Diagnostic 2.3 ng/mL (<=6.5)
== END 2024-05-15 08:43 | disposition home or self-care (01) ==
PROVIDERS: PCP Nurse Practitioner; Visit Provider Urology
DX: R97.20 Elevated prostate specific antigen [PSA] (principal)
CPT/HCPCS: 36415; 84153

== ENCOUNTER → 2024-05-19 09:45 | Outpatient (BNVA) | payer MEDICARE, OTHER, SELFPAY | PROVIDERS: PCP Nurse Practitioner; Visit Provider Urology | DX: R35.1 Nocturia (principal); R97.20 Elevated prostate specific antigen [PSA] | CPT/HCPCS: 99213 ==

== ENCOUNTER 2024-09-29 07:26 | Outpatient (CLI) | payer MEDICARE, OTHER, SELFPAY ==
[2024-09-29 08:01] LABS: ALT 30 U/L (16-63); AST 19 U/L (15-37); Alkaline Phosphatase 60 U/L (46-116); BUN 25 mg/dL (7-18); Bilirubin, Total 0.48 mg/dL (0.2-1.0); CREATININE 1.2 mg/dL (0.70-1.30); Calcium 9.5 mg/dL (8.5-10.1); Calculated LDL 70 mg/dL (<100); Chloride 106 mmol/L (98-107); Cholesterol 143 mg/dL (<200); Estimated GFR 63.85 (mL/min/1.73m2); Glucose 109 mg/dL (74-106); HDL Cholesterol 55 mg/dL (40-60); Potassium 4.3 mmol/L (3.5-5.1); Sodium 144 mmol/L (136-145); Total Protein 7.3 g/dL (6.4-8.2); Triglyceride 90 mg/dL (<150)
[2024-09-29 08:32] LABS: Hemoglobin A1C 5.8 % (<5.7)
== END 2024-09-29 07:27 | disposition home or self-care (01) ==
PROVIDERS: PCP Nurse Practitioner; Visit Provider Nurse Practitioner
DX: R73.03 Prediabetes (principal); E78.5 Hyperlipidemia, unspecified
CPT/HCPCS: 36415; 80053; 80061; 83036

== ENCOUNTER 2025-05-11 10:06 | Outpatient (CLI) | payer MEDICARE, OTHER, SELFPAY ==
[2025-05-11 20:22] LABS: PSA, Diagnostic 3.1 ng/mL (<=6.5)
== END 2025-05-11 10:07 | disposition home or self-care (01) ==
LOC: LBO 10:06
PROVIDERS: PCP Nurse Practitioner; Visit Provider Urology
DX: R97.20 Elevated prostate specific antigen [PSA] (principal)
CPT/HCPCS: 36415; 84153

== ENCOUNTER → 2025-05-18 09:52 | Outpatient (BNVA) | payer MEDICARE, OTHER, SELFPAY | PROVIDERS: PCP Nurse Practitioner; Visit Provider Urology | DX: Z90.79 Acquired absence of other genital organ(s) (principal); R97.20 Elevated prostate specific antigen [PSA] | CPT/HCPCS: 99213 ==